=== PATIENT | male | born 1980 | race Caucasian/White ===

== ENCOUNTER 2024-11-27 21:21 | Emergency (ER) | payer OTHER, SELFPAY ==
--- NOTE | ~2024-11-27 | XR_ITS ---
Left Hand Technique: PA, oblique, and lateral views were obtained. Clinical History: Foreign body, fishhook Findings: No acute fracture or dislocation is seen. Osseous alignment is anatomic. Joint spaces are p reserved. There is a metallic fishhook in the first interspace region at the palmar aspect of the soto d.. Impression: Metallic fishhook in the first interspace region the palmar aspect of the hand. Reviewed, dictated and finalized at location M. Impression: Metallic fishhook in the first interspace region the palmar aspect of the hand.
[2024-11-27 21:37] VITALS: BP 139/82; PULSE 83; RESP 16; TEMP 36.8; O2SAT 97
--- OUTSIDE RECORDS SUMMARY | 2024-11-27 22:54 | XMS_ITS | Referral Summary ---
Author Organization [facility] at [facility] Office Center Address [address] [place] [address] Care Team Providers Care News Library Director Name Role Phone Steve Richardson MD, Mohan Daly Primary Care Provide r Allergies No known active allergies Medications cetirizine (ZyrTEC) 10 mg chewable tablet Take 1 tablet (10 mg total) by mouth daily Active fluticasone propionate (FLONASE) 50 mcg/actuation nasal spray Administer 1 spray into each nostril daily Active loratadine (CLARITIN) 10 mg tabletIndications:Seaso nal allergies Take 1 tablet (10 mg total) by mouth daily 90 tablet 3 08/28/19 24 Active atorvastatin (LIPITOR) 80 mg tabletIndications:Type 2 diabetes mellitus without complication, without long-term current use of insulin (HCC) Take 1 tablet (80 mg total) by mouth daily 90 tablet 4 12/16/19 24 2024 Active zolpidem CR (AMBIEN CR) 6.25 mg CR tabletIndications:Insom howie Take 1 tablet (6.25 mg total) by mouth nightly as needed for sleep 30 tablet 02/16/20 24 Active tirzepatide (Mounjaro) 15 mg/0.5 mL pen injectorIndications:Typ e 2 diabetes mellitus with hyperglycemia, without long-term current use of insulin (HCC) Inject 15 mg under the skin every 7 days 2 mL 11 05/13/20 24 Active omega-3 fatty acids 1,000 mg capsuleIndications:Pure hypertriglyceridemia Take 1 capsule by mouth nightly 90 capsule 3 07/11/19 25 Active olmesartan (BENICAR) 5 mg tabletIndications:Type 2 diabetes mellitus with hyperglycemia, without long-term current use of insulin (HCC) Take 1 tablet (5 mg total) by mouth daily 90 tablet 3 07/11/19 25 2025 Active Active Problems Problem Noted Date Diagnosed Date Preventative health care 06/17/2023 Assessment & Plan (07/11/2024 2:11 PM IMPORT/EXPORT SPECIALIST): Reviewed labs, screenings and vaccines Assessment & Plan (06/17/2023 10:01 AM IMPORT/EXPORT SPECIALIST): Reviewed labs, screenings and vaccines Type 2 diabetes mellitus wit h hyperglycemia, without long-term current use of insulin 12/16/2022 Overview (12/16/2022): 2019 dx, standard blood work Tried metformin Added on trulicity-has been on for about a year Last time blood work was done was about a year Assessment & Plan (07/11/2024 2:11 PM IMPORT/EXPORT SPECIALIST): Hgba1c is well controlled, in the 6's for the first time in a while Continue regime although he may be having some almost hot flashes with loose stools from it, not very frequent, will monitor and report back if it worsens Assessment & Plan (12/16/2023 9:50 AM CDT): Has been on mounjaro for about 3 weeks, so we will recheck in 6 months Continue lisinopril and statin as well Seasonal allergies 12/16/2022 Assessment & Plan (12/16/2022 10:55 AM CDT): Takes OTCs prn Psychophysiological insomnia 12/16/2022 Overview (12/16/2022): Takes occasional ambien about monthly when sleep cycle gets off, has done this since 2010 Class 1 obesity due to exces s calories with serious comorbidity and body mass index (BMI) of 30.0 to 30.9 in adult 12/16/2022 Overview (12/16/2022): With dm2 Assessment & Plan (07/11/2024 2:10 PM IMPORT/EXPORT SPECIALIST): Done 15 lb since summer, Continue current regime Assessment & Plan (12/16/2023 10:16 AM CDT): Starting Mounjaro Monitor weight Assessment & Plan (06/17/2023 10:01 AM IMPORT/EXPORT SPECIALIST): With dm2 Monitor weight Assessment & Plan (12/16/2022 10:16 AM CDT): Monitor weight On trulicity NATHALIE (obstructive sleep apnea) 12/16/2022 Smoker 12/16/2022 Assessment & Plan (12/16/2022 10:22 AM CDT): Only smokes two cigarettes a day Immunizations Immunization Administration Dates Next Due Anthrax 09/30/2010, 0,03/17/2000,02/18 H1N1 Nasal 07/03/2009 Hep A, Adult 09/07/1998,01/05/1998 Hep B Vaccine 06/03/2011,11/17/2010,09/30/2010 Influenza LAIV (Nasal) 03/16/2013,2010,03/28/2010,05/21 Influenza, Quadrivalent, Spl it, Preservative Free, Intramuscular 05/21/2021,05/24/2019,04/19/2018,04/20 Influenza, Split 07/03/2009, 7,05/29/2005,07/17,06/03/2002,04/16/2001,07/10/2000 ,04/15/1999,03/27/1998,12/29/1997 Influenza, Trivalent, Cell Culture-based MDCK, Preservative Free, Antibiotic Free, Intramuscular 04/10/2020 Influenza, Trivalent, Preser vative Free, Intramuscular 04/23/2016,04/06/2015,04/05/2014,04/08 Influenza, Unspecified 07/11/2024(Deferr ed: Patient Refused),04/22/2024(Deferred: Patient Refused),04/22/2023(Deferred: Patient Refused),04/22/2022 Influenza, Whole 06/03/2002, 1,07/10/2000,04/15,03/27/1998,12/29/1997 Green[place]ic Encephalitis IM 02/08/2021,11/26/2020 MMR 04/05/2014,01/05/1998 Meningococcal MCV4P (Menactra) 10/02/2010 Meningococcal Polysaccharide (Menomune) 12/29/1997 OPV 01/05/1998 PPD TEST 01/25/2002, 0,01/14/1999,11/29 Smallpox 11/17/2010 Td, adsorbed 04/10/2020,12/29/1997 Tdap 01/28/2010 Typhoid H-P SQ/ID 01/06/2003,11/26/2000,09/07/18 99 Typhoid Inactivated 08/11/2018, 6,02/10/2014,10/02,07/20/2007,06/02/2005 Yellow Fever 02/10/2014,09/07/1998 Social History Tobacco Use Types Packs/Day Years Used Date Smoking Tobacco: Every Day Cigarettes Smokeless Tobacco: Never Tobacco Cessation:Ready to Q uit: No; Counseling Given: Yes AUDIT-C Answer Date Recorded Q1: How often do you have a drink containing alc ohol? 2-4 times a month 12/16/2023 Q2: How many drinks containi ng alcohol do you have on a typical day when you are drinking? 1 or 2 12/16/2023 Q3: How often do you have si x or more drinks on one occasion? Never 12/16/2023 PHQ-2 Answer Date Recorded PHQ-2 Total Score (If total score is 3 or more points, staff should administer the PHQ-9) 0 07/11/2024 Sex and Gender Information Value Date Recorded Sex Assigned at Not on file Legal Sex Male 8:58 AM CDT Gender Identity Not on file Sexual Orientation Not on file Last Filed Vital Signs Vital Sign Reading Time Taken Comments Blood Pressure 112/68 07/11/2024 1:42 PM IMPORT/EXPORT SPECIALIST Pulse 71 07/11/2024 1:42 PM IMPORT/EXPORT SPECIALIST Temperature 36.4 C (97.6 F) 07/11/2024 1:42 PM IMPORT/EXPORT SPECIALIST Respiratory Rate 16 07/11/2024 1:42 PM IMPORT/EXPORT SPECIALIST Oxygen Saturation 97% 07/11/2024 1:42 PM IMPORT/EXPORT SPECIALIST Inhaled Oxygen Concentration - - Weight 106.6 kg (235 lb) 07/11/2024 1:42 PM IMPORT/EXPORT SPECIALIST Height 188 cm (6' 2) 07/11/2024 1:42 PM IMPORT/EXPORT SPECIALIST Body Mass Index 30.17 07/11/2024 1:42 PM IMPORT/EXPORT SPECIALIST Plan of Treatment Not on file Procedures Procedure Name Priority Date/Time Associated Diagnosis Comments POCT HEMOGLOBIN A1C Routine 07/11/2024 2 :01 PM IMPORT/EXPORT SPECIALIST Type 2 diabetes mellitus with hyperglycemia, without long-term current use of insulin (HCC) ALBUMIN CREATININE RATIO, URINE Routine 12/16/2023 11:40 AM CDT Type 2 diabetes mellitus without complication, without long-term current use of insulin ([facility]) EGFR Routine 12/16/2023 10:05 AM CDT Type 2 diabetes mellitus without complication, without long-term current use of insulin (HCC) LIPID PANEL Routine 12/16/2023 10:05 AM CDT Type 2 diabetes mellitus without complication, without long-term current use of insulin ([facility]) from Last 3 Months or Most Recently Relevant to Health Maintenance Results * POCT hemoglobin A1c (07/11/2024 2:01 PM IMPORT/EXPORT SPECIALIST) Pathologist [facility] Hemoglobin A1C, POC 6.4 4.0 - 5.6 % Capillary blood 07/11/2024 2 :01 PM IMPORT/EXPORT SPECIALIST Mohan Wilson Jr., MD POINT OF CARE TEST OR DERABLES Final Result * Albumin Creatinine Ratio, Urine (12/16/2023 11:40 AM CDT) Albumin Ur <12.0 mg/L Comment: Interpretive Data No reference range established. Current interpretive data was last revised 2018. Testing performed by: [facility], [address] [place] [address]., [id number] Creatinine Ur 162.6 mg/dL [facility] Comment: Interpretive Data No reference range established. Current interpretive data was last revised 2018. Testing performed by: [facility], [address] [place] [address]., [id number] Albumin Creatinine Ratio, Ur <7 1 - 29 mg/g [facility] Comment:Testing performed by : [address] [id number] Urine 12/16/2023 11:4 0 AM CDT 12/16/2023 11:40 AM CDT us Mohan Wilson Jr., MD LAB URINE ORDERABLES Final Result [facility] [address] [facility] Department [place] [address] * eGFR (12/16/2023 10:05 AM CDT) eGFR >90 >=60 mL/min/1. 73 m2 Comment: Interpretive Data Reference Interval Normal >/= 90 mL/min/1.73m2 Mildly decreased* 60 - 89 mL/min/1.73m2 Mildly to moderately decreased 45 - 59 mL/min/1.73m2 Moderately to severely decreased 30 - 44 mL/min/1.73m2 Severely decreased 15 - 29 mL/min/1.73m2 Kidney Failure < 15 mL/min/1.73m2 *Relative to young adult level Estimated glomerular filtration rate is determined by the 2020 CKD-EPI equation recommended by the National Kidney Foundation (A Unifying Approach to GFR Estimation: Recommendations of the NKF-ASK Task Force on Reassessing the Inclusion of Race in Diagnosing Kidney Disease, JASN 2020). The CKD-EPI equation should not be used for patients with unstable renal function and has not been validated in children and those over 70. Current interpretive data was last reviewed 2021. Testing performed by: [facility], [address] [place] [address]., [id number] Blood 12/16/2023 10:0 5 AM CDT 12/16/2023 11:40 AM CDT us Mohan Wilson Jr., MD LAB BLOOD ORDERABLES Final Result [facility] [address] [facility] Department [place] [address] * (ABNORMAL) Lipid panel (12/16/2023 10:05 AM CDT) Cholesterol 268(H) 30 - 199 mg/dL Comment: Interpretive Data Ages < or = 19 years Acceptable: <170 mg/dL Borderline high: 170-199 mg/dL High: >or= 200 mg/dL Ages > or = 20 years Desirable: <200 mg/dL Borderline high: 200-239 mg/dL High: >or= 240 mg/dL Literature References: 1. Expert Panel on Integrated Guidelines for Cardiovascular Health and Risk Reduction in Children and Adolescents. Pediatrics 2011;128:S213 2. NCEP Expert Panel. Circulation 2004;110:227 Current Interpretive Data was last revised on 2018. Testing performed by: [address] [address] Triglycerides 922(H) <=149 mg/dL [facility] Comment: Interpretive Data Ages < or = 9 years Acceptable: <75 mg/dL Borderline high: 75-99 mg/dL High: >or= 100 mg/dL Ages 10 to 20 years Acceptable: <90 mg/dL Borderline high: 90-129 mg/dL High: >or= 130 mg/dL Ages > or = 20 years Desirable: <150 mg/dL Borderline high: 150-199 mg/dL High: 200-499 mg/dL Very high: >or= 499 mg/dL Literature References: 1. Expert Panel on Integrated Guidelines for Cardiovascular Health and Risk Reduction in Children and Adolescents. Pediatrics 2011;128:S213 2. NCEP Expert Panel. Circulation 2004;110:227 Current Interpretive Data was last revised on 2018. Testing performed by: [address] [address] HDL 34(L) >=40 mg/dL [facility] Comment: Interpretive Data Ages < or = 19 years Acceptable: >45 mg/dL Borderline low: 40-45 mg/dL Low: <40 mg/dL Ages > or = 20 years Desirable: >or= 60 mg/dL Low: <40 mg/dL Literature References: 1. Expert Panel on Integrated Guidelines for Cardiovascular Health and Risk Reduction in Children and Adolescents. Pediatrics 2011;128:S213 2. NCEP Expert Panel. Circulation 2004;110:227 Current Interpretive Data was last revised on 2018. Testing performed by: [address] [address] LDL, calculated See Comment <=129 mg/dL [facility] Comment: C annot Calculate, Triglycerides above 400 mg/dL Interpretive Data Ages < or = 19 years Acceptable: <110 mg/dL Borderline high: 110-129 mg/dL High: >or= 130 mg/dL Ages > or = 20 years Optimal: <100 mg/dL Near optimal: 100-129 mg/dL Borderline high: 130-159 mg/dL High: >160 mg/dL Literature References: 1. Expert Panel on Integrated Guidelines for Cardiovascular Health and Risk Reduction in Children and Adolescents. Pediatrics 2011;128:S213 2. NCEP Expert Panel. Circulation 2004;110:227 Current Interpretive Data was last revised on 2018. Testing performed by: [address] [address] Non-HDL Cholesterol 234 mg/dL [facility] Comment: Interpretive Data Ages < or = 19 years Acceptable: <120 mg/dL Borderline high: 120-144 mg/dL High: >145 mg/dL Ages > or = 20 years When triglycerides are >200 mg/dL, Non-HDL cholesterol is a secondary target of therapy with treatment goals that are 30 mg/dL greater than the LDL cholesterol target. Literature References: 1. Expert Panel on Integrated Guidelines for Cardiovascular Health and Risk Reduction in Children and Adolescents. Pediatrics 2011;128:S213 2. NCEP Expert Panel. Circulation 2004;110:227 Current Interpretive Data was last revised on 2018. Testing performed by: [address] [address] Chol/HDL ratio 8 [facility] Comment:Testing performed by : [address] [address] Blood 12/16/2023 10:0 5 AM CDT 12/16/2023 11:40 AM CDT Mohan Wilson Jr., MD LAB BLOOD ORDERABLES Final Result Performing Organization Address City/State/ZIP [place] Phone Number CERNER [facility] [address] [facility] Department [place] [address] from Last 3 Months or Most Recently Relevant to Health Maintenance Insurance [employer] [facility] Care Teams News Library Director Relationship Specialty Start Date End Date Mohan Wilson Jr., MD [address] [place] [id number] PCP - General Internal Medicine 12/16/22
--- OUTSIDE RECORDS SUMMARY | 2024-11-27 22:54 | XMS_ITS | Clinical Summary ---
Author Organization [facility] at [facility] Office Center Address [address] [place] [address] Care Team Providers Care Filler Sifter Helper Name Role Phone Steve Richardson MD, Mohan [...] 06/17/2023 Assessment & Plan (07/11/2024 2:11 PM AUTO CUSTOMIZE PAINTER): Reviewed labs, screenings and vaccines Assessment & Plan (06/17/2023 10:01 AM AUTO CUSTOMIZE PAINTER): Reviewed labs, screenings and vaccines Type 2 diabetes mellitus wit h hyperglycemia, without long-term current use of insulin 12/16/2022 Overview (12/16/2022): 2019 dx, standard blood work Tried metformin Added on trulicity-has been on for about a year Last time blood work was done was about a year Assessment & Plan (07/11/2024 2:11 PM AUTO CUSTOMIZE PAINTER): Hgba1c is well controlled, in the 6's [...] dm2 Assessment & Plan (07/11/2024 2:10 PM AUTO CUSTOMIZE PAINTER): Done 15 lb since summer, Continue current regime Assessment & Plan (12/16/2023 10:16 AM CDT): Starting Mounjaro Monitor weight Assessment & Plan (06/17/2023 10:01 AM AUTO CUSTOMIZE PAINTER): With dm2 Monitor weight Assessment & Plan [...] Refused),04/22/2023(Deferred: Patient Refused),04/22/2022 Influenza, Whole 06/03/2002, 1,07/10/2000,04/15,03/27/1998,12/29/1997 Chinese Encephalitis IM 02/08/2021,11/26/2020 MMR 04/05/2014,01/05/1998 Meningococcal MCV4P (Menactra) 10/02/2010 Meningococcal Polysaccharide (Menomune) 12/29/1997 OPV 01/05/1998 PPD TEST 01/25/2002, 0,01/14/1999,11/29 Smallpox 11/17/2010 Td, adsorbed 04/10/2020,12/29/1997 Tdap 01/28/2010 Typhoid H-P SQ/ID 01/06/2003,11/26/2000,09/07/18 99 Typhoid Inactivated 08/11/2018, 6,02/10/2014,10/02,07/20/2007,06/02/2005 Yellow Fever 02/10/2014,09/07/1998 Medical History Medical History Date Comments Allergic Diabetes mellitus (HCC) Anxiety PTSD (post-traumatic stress disorder) Family History Medical History Relation Name Comments Heart disease Father Relation Name Status Comments Father Mother Alive Social History Tobacco Use Types Packs/Day Years [...] on file Sexual Orientation Not on file Obstetrics History Last Filed Vital Signs Vital Sign Reading Time Taken Comments Blood Pressure 112/68 07/11/2024 1:42 PM AUTO CUSTOMIZE PAINTER Pulse 71 07/11/2024 1:42 PM AUTO CUSTOMIZE PAINTER Temperature 36.4 C (97.6 F) 07/11/2024 1:42 PM AUTO CUSTOMIZE PAINTER Respiratory Rate 16 07/11/2024 1:42 PM AUTO CUSTOMIZE PAINTER Oxygen Saturation 97% 07/11/2024 1:42 PM AUTO CUSTOMIZE PAINTER Inhaled Oxygen Concentration - - Weight 106.6 kg (235 lb) 07/11/2024 1:42 PM AUTO CUSTOMIZE PAINTER Height 188 cm (6' 2) 07/11/2024 1:42 PM AUTO CUSTOMIZE PAINTER Body Mass Index 30.17 07/11/2024 1:42 PM AUTO CUSTOMIZE PAINTER Plan of Treatment Health Maintenance Due Date Last Done Comments Colon Cancer Screening-Colonoscopy 1979 Hepatitis C Screening 1979 Dilated Eye Exam 1979 Pneumococcal vaccine <65 (1 of 2 - PCV) 09/10/1998 Covid-19 Vaccine ( - season) 2024 07/30/2020, 07/03/2020 Foot Exam 06/17/2024 06/17/2023 Albumin Creatinine Ratio, Urine 12/15/2024 12/16/2023, 12/16/2022 Lipid Panel 12/15/2024 12/16/2023, 12/16/2022 eGFR 12/15/2024 12/16/2023, 12/16/2022 Hemoglobin A1C 01/08/2025 07/11/2024, 0611/2023, 06/17/2023, Additional history exists Influenza Vaccine (Season Ended) 2025 04/22/2022, 05/21/2021, 04/10/2020, Additional history exists Depression Screening 07/11/2025 07/11/2024, 12/16/2023, 06/17/2023, Additional history exists Regular Well Visit/Exam 18-64 07/11/2025 07/11/2024, 06/17/2023 DTaP/Tdap/Td Vaccine (3 - Td or Tdap) 04/10/2030 04/10/2020, 01/28/2010, 12/29/1997 Hepatitis B Screening Completed 06/03/2011 , 11/17/2010, 09/30/2010 HPV Vaccines Aged Out No longer eligi ble based on patient's age to complete this topic Varicella Vaccines Discontinued Procedures Procedure Name Priority Date/Time Associated Diagnosis Comments POCT HEMOGLOBIN A1C Routine 07/11/2024 2 :01 PM AUTO CUSTOMIZE PAINTER Type 2 diabetes mellitus with hyperglycemia, without long-term current use of insulin (HCC) ALBUMIN CREATININE RATIO, URINE Routine 12/16/2023 11:40 AM CDT Type 2 diabetes mellitus without complication, without long-term current use of insulin (HCC) EGFR Routine 12/16/2023 10:05 AM CDT Type 2 diabetes mellitus without complication, without long-term current use of insulin (HCC) LIPID PANEL Routine 12/16/2023 10:05 AM CDT Type 2 diabetes mellitus without complication, without long-term current use of insulin (HCC) from Last 3 Months or Most Recently Relevant to Health Maintenance Results * POCT hemoglobin A1c (07/11/2024 2:01 PM AUTO CUSTOMIZE PAINTER) Hemoglobin A1C, POC 6.4 4.0 - 5.6 % Capillary blood 07/11/2024 2 :01 PM AUTO CUSTOMIZE PAINTER Mohan Wilson Jr., MD POINT OF CARE TEST OR DERABLES Final Result * Albumin Creatinine Ratio, Urine (12/16/2023 11:40 AM CDT) Albumin Ur <12.0 mg/L Comment: Interpretive Data No reference range established. Current interpretive data was last revised 2018. Testing performed by: [address] [address] Creatinine Ur 162.6 mg/dL [facility] Comment: Interpretive Data No reference range established. Current interpretive data was last revised 2018. Testing performed by: [address] [address] Albumin Creatinine Ratio, Ur <7 1 - 29 mg/g [facility] Comment:Testing performed by : [address] [address] Urine 12/16/2023 11:4 0 AM CDT 12/16/2023 11:40 AM CDT Mohan Wilson Jr., MD LAB URINE ORDERABLES Final Result Performing Organization Address [facility] Co de Phone Number [facility] [address] [place] [address] * eGFR (12/16/2023 10:05 AM CDT) eGFR [...] was last reviewed 2021. Testing performed by: [facility], [address] [place] [address]., [id number] Blood 12/16/2023 10:0 5 AM CDT 12/16/2023 11:40 AM CDT Mohan Wilson Jr., MD LAB BLOOD ORDERABLES Final Result Performing Organization Address City/[facility]/ZIP Co de Phone Number [facility] [place] [address] * (ABNORMAL) Lipid panel (12/16/2023 10:05 AM [...] revised on 2018. Testing performed by: [address] [address] Triglycerides 922(H) <=149 mg/dL [facility] Comment: Interpretive Data Ages < [...] Pediatrics 2011;128:S213 2. NCEP Expert Panel. Circulation 2003;110:227 Current Interpretive Data was last revised on 2018. Testing performed by: [address] [address] HDL 34(L) >=40 mg/dL [facility] Comment: Interpretive Data Ages < [...] revised on 2018. Testing performed by: [address] [address] LDL, calculated See Comment <=129 mg/dL [facility] Comment: C annot Calculate, Triglycerides above 400 [...] revised on 2018. Testing performed by: [address] [address] Non-HDL Cholesterol 234 mg/dL [facility] Comment: Interpretive Data Ages [...] revised on 2018. Testing performed by: [address] [address] Chol/HDL ratio 8 [facility] Comment:Testing performed by : [address] [address] Blood 12/16/2023 10:0 5 AM CDT 12/16/2023 11:40 AM CDT us Mohan Wilson Jr., MD LAB BLOOD ORDERABLES Final Result [facility] [address] [facility] Department [place] [address] from Last 3 Months or Most Recently Relevant to Health Maintenance Insurance [facility] Care Teams Filler Sifter Helper Relationship Specialty Start Date End Date Mohan Wilson Jr., MD [address] [place] [id number] PCP - General Internal Medicine 12/16/22
--- OUTSIDE RECORDS SUMMARY | 2024-11-27 22:55 | XMS_ITS | Continuity of Care Document ---
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 It does not include entries that were removed or entered in error. Problem Status Onset Date Problem Type Date of Resolution Comments Source Disease caused by 2019 novel coronavirus1 Active 2021 Condition This problem was added by Discern Expert for positive COVID-19 lab test. Unknown Organization Type 2 diabetes mellitus without complications Active 2018 Condition DoD Counseling, unspecified Active 2018 Condition DoD Pain in right ankle and joints of right foot Active 2017 Condition DoD Patient Education Active 2006 Condition DoD Other mixed anxiety disorders Active Condition DoD Encounter for screening for other disorder Active Condition DoD Other specified counseling Active Condition DoD Paresthesia of skin Active Condition DoD Ingrowing nail Active Condition DoD joint pain in the left knee Active Condition DoD Outpatient Physician Consultation Active Condition DoD CLOSED FRACTURE LEFT THUMB MCP Inactive Condition DoD joint pain fingers Active Condition DoD CONJUNCTIVITIS Inactive Condition DoD DERMATOPHYTOSIS ONYCHOMYCOSIS TOENAILS Active Condition DoD UPPER RESPIRATORY INFECTION ACUTE Inactive Condition DoD tobacco use Active Condition DoD DERMATOPHYTOSIS ONYCHOMYCOSIS TOENAILS RIGHT 1ST Active Condition DoD visit for: services physical in-theatre Inactive Condition DoD insomnia Inactive Condition DoD ATYPICAL CHEST PAIN Inactive Condition DoD fainting (syncope) Inactive Condition DoD visit for: services physical pre-deployment Inactive Condition DoD visit for: laboratory Active Condition DoD GASTROENTERITIS Active Condition DoD visit for: services physical Inactive Condition DoD Body Mass Index Active Condition DoD OBESITY Active Condition DoD Patient Education - Dietary Active Condition DoD vomiting Inactive Condition DoD ACANTHOSIS NIGRICANS Active Condition DoD FURUNCULOSIS Active Condition DoD visit for: issue repeat prescription Active Condition DoD SKIN ABSCESS Inactive Condition DoD SUPERFICIAL INJURY - NONVENOMOUS INSECT BITE ON TRUNK Active Condition DoD Patient Education - Alcohol Active Condition [place]ka II: Eureka III: NONEAxis IV: NoneAxis V: 90 Overall GAF DoD Anticipatory Guidance: Alcohol Use Active Condition [place] II: v71.09 No dxAxis III: NONEAxis IV: Occupational ProblemsAxis V: 81-90 Overall GAFPrevention: Pt given AEM to complete in the next two weeks. Pt instructed on reasons the provider referred him as part of a preventitive measure. [facility] NO PSYCHIATRIC DIAGNOSIS OR CONDITION ON AXIS I Active Condition AXIS II - V71.0 9 NO DIAGNOSISAXIS III - NO CONTRIBUTING FACTORSAXIS IV - NONE AXIS V - GAF - 80-90 DoD visit for: occupational health / fitness exam Active Condition DoD HUMAN HERPESVIRUS Inactive Condition wi ll give standing precription for acyclovir for future outbreaks. Will re-evaluate for consideration of suppression therapy. DoD visit for: administrative purpose Inactive Condition DoD ALLERGIC RHINITIS Active Condition Al legra not helping. Will switch to Claritin and add flonase and Singulair. Pt's symptoms will likely improve if he stops smoking as well. Pt counseled onseasonal pattern allergic processes. DoD CODY SPLINT Inactive Condition pt heali ng well- bone scan negative for stress fractureencouraged pt to continue with rest for few more weeks, then start running again slowlyhandout given for stretches, etc DoD FURUNCLE Inactive Condition most of le sions healed- no need po abx currentlyrec bacitracin to lesions bid- rf given DoD UPPER RESPIRATORY INFECTION Inactive Condition Pt with sy of v iral URI.Quarters.Home care.FU on Thursday with nursing if not improving -- consider ABX at that time (likely ZPack). [facility] Medications Combined list of outpatient medications from Department of Defense and Veterans Affairs facilities.Medications provided include 1) outpatient medications from the last 15 months, and 2) patient-reported medications. Medication Details Route Status Patient Instructions Prescription Expires Prescription Number Last Dispense Date Ordering Provider Order Date Order Qty Source amoxicillin -clavulanat e 875 mg-125 mg oral tablet 0 total refill(s ) Ordered 2016 No Facilit y Access atorvastati n 40 mg tablet See Instruct ions, # 90 EA, 3 total refill(s ), Hard Stop Complet ed 12/16/2023 3 2023 90.0 Ambulat ory Pharmac y atorvastati n 80 mg tablet = 1 tab(s), Oral, Daily, # 90 EA, 3 total refill(s ), Hard Stop Oral (given by mouth) Ordered 12/15/2024 5 2024 90.0 Ambulat ory Pharmac y benzonatate 200 mg oral capsule benzonat ate 200 mg oral capsule Start Date: 03/31/17 Status: Ordered Repeat number: 1 Ordered 2016 No Facilit y Access FreeStyle Aiyana 2 Sensor See Rx Instruct mary lou, SubCutan eous, # 6 EA, 0 total refill(s ), Hard Stop SubCut aneous (under the skin) Complet ed 04/07/20232022 6.0 Ambulat ory Pharmac y glucose test strip (freestyle lite) CHECK BLOOD GLUCOSE TWICE DAILY ABOUT THREE TIMES A WEEK IN THE MORNING AND 2 HOURS AFTER LARGEST MEAL., # 100 EA, 3 total refill(s ), Acute Complet ed 12/10/2022 2 2022 100.0 Ambulat ory Pharmac y lisinopril 2.5 mg tablet See Instruct ions, # 90 EA, 3 total refill(s ), Hard Stop Complet ed 12/16/2023 3 2023 90.0 Ambulat ory Pharmac y loratadine 10 mg tablet 10 mg, Oral, Daily, # 90 EA, 3 total refill(s ), Hard Stop Oral (given by mouth) Complet ed 08/27/2024 4 2024 90.0 Ambulat ory Pharmac y Mounjaro 10 mg/0.5 mL inj-pen [4pens/2mL] See Instruct ions, # 2 mL, 0 total refill(s ), Hard Stop Complet ed 04/15/2024 4 2023 2.0 Ambulat ory Pharmac y Mounjaro 12.5 mg/0.5 mL inj-pen [4pens/2mL] See Instruct ions, # 2 mL, 0 total refill(s ), Hard Stop Ordered 04/14/2025 2023 2.0 Ambulat ory Pharmac y Mounjaro 2.5 mg/0.5 mL inj-pen [4pens/2mL] See Instruct ions, # 2 mL, 0 total refill(s ), Hard Stop Discont inued 12/18/2023 4 2023 2.0 Ambulat ory Pharmac y Mounjaro 5 mg/0.5 mL inj-pen [4pens/2mL] See Instruct ions, # 2 mL, 0 total refill(s ), Hard Stop Discont inued 02/16/2024 4 2023 2.0 Ambulat ory Pharmac y Mounjaro 7.5 mg/0.5 mL inj-pen [4pens/2mL] See Instruct ions, # 2 mL, 0 total refill(s ), Hard Stop Complet ed 01/15/2024 4 2023 2.0 Ambulat ory Pharmac y Mounjaro 7.5 mg/0.5 mL inj-pen [4pens/2mL] See Instruct ions, # 2 mL, 0 total refill(s ), Hard Stop Complet ed 02/19/2024 4 2023 2.0 Ambulat ory Pharmac y naproxen 500 mg oral tablet TAKE ONE TABLET BY MOUTH TWICE A DAY FOR PAIN OR INFLAMMA TION *MED GUIDE*, # 60 EA, 1 total refill(s ), Acute Complet ed 08/22/2022 2 2022 60.0 Ambulat ory Pharmac y tirzepatide (Mounjaro) 15 mg/0.5 mL inj-pen [4pens/2mL] See Instruct ions, # 2 mL, 11 total refill(s ), Hard Stop Ordered 05/13/2025 5 2024 2.0 Ambulat ory Pharmac y Trulicity Pen 0.75 mg/0.5 mL [4EA=2mL] See Rx Instruct ions, SubCutan eous, # 2 mL, 1 total refill(s ), Hard Stop SubCut aneous (under the skin) Discont inued 11/04/2022 3 2022 2.0 Ambulat ory Pharmac y Trulicity Pen 0.75 mg/0.5 mL [4EA=2mL] See Instruct ions, # 2 mL, 1 total refill(s ), Hard Stop Complet ed 11/26/2023 3 2023 2.0 Ambulat ory Pharmac y Trulicity Pen 1.5 mg/0.5 mL [4EA=2mL] See Instruct ions, # 6 mL, 3 total refill(s ), Hard Stop Notes: refriger ate Discont inued 02/16/2024 4 2023 6.0 Ambulat ory Pharmac y Trulicity Pen 1.5 mg/0.5 mL [4EA=2mL] See Instruct ions, # 2 mL, 3 total refill(s ), Hard Stop Complet ed 02/03/2024 3 2023 2.0 Ambulat ory Pharmac y zolpidem CR 6.25 mg tablet 6.25 mg, Oral, # 30 EA, 0 total refill(s ), Hard Stop Oral (given by mouth) Discont inued 02/16/2024 4 2023 30.0 Ambulat ory Pharmac y zolpidem CR 6.25 mg tablet See Instruct ions, # 30 EA, 0 total refill(s ), Hard Stop Complet ed 03/18/2024 4 2023 30.0 Ambulat ory Pharmac y zolpidem CR 6.25 mg tablet See Instruct ions, # 30 EA, 0 total refill(s ), Hard Stop Complet ed 06/14/2023 3 2022 30.0 Ambulat ory Pharmac y Allergies, Adverse Reactions, Alerts Combined list of allergies from Department of Defense and Veterans Affairs facilities. It does not include entries that were removed or entered in error. Substance Category Reaction Severity Reaction type Status Date Reported Comments Source No Known Allergies Drug allergy (disorder) active 05/24/2013 DoD Immunizations Combined list of available immunizations from the Department of Defense and Veterans Affairs facilities. Immunization Series Date Given Administered By Site Reaction Lot Number CVX Code Drug Woods Boss Status Comments Source Influenza, injectable, quadrivalent, preservative free 1 2020 [id number] [employer] SmithKline (SKB) complet ed Influenza , injectabl e, quadrival ent, preservat paul free DoD Bangl[place]hi Encephalitis vaccine for intramuscular administratio n 2 2020 [id number] 134 Valneva (DANN) complet ed Bangl[place] Encephali tis vaccine for intramusc ular administr ation DoD [place] Encephalitis vaccine for intramuscular administratio n 1 2020 [id number] 134 Valneva (DANN) complet ed [place] Encephali tis vaccine for intramusc ular administr ation DoD SARS-COV-2 (COVID-19) vaccine, mRNA, spike protein, LNP, preservative free, 100 mcg or 50 mcg dose 2 2020 [id number] 207 Sc[employer] Inc. (MOD) complet ed SARS-COV- 2 (COVID-19 ) vaccine, mRNA, spike protein, LNP, preservat paul free, 100 mcg or 50 mcg dose DoD SARS-COV-2 (COVID-19) vaccine, mRNA, spike protein, LNP, preservative free, 100 mcg or 50 mcg dose 1 2020 [id number] 207 [employer] (MOD) complet ed SARS-COV- 2 (COVID-19 ) vaccine, mRNA, spike protein, LNP, preservat paul free, 100 mcg or 50 mcg dose DoD tetanus and diphtheria toxoids, adsorbed, preservative free, for adult use (2 Lf of tetanus toxoid and 2 Lf of diphtheria toxoid) 3 2019 [id number] Sanofi Pasteur ([facility]) complet ed tetanus and diphtheri a toxoids, adsorbed, preservat paul free, for adult use (2 Lf of tetanus toxoid and 2 Lf of diphtheri a toxoid) DoD Influenza, injectable, Madin Herkimer Canine Kidney, preservative free, quadrivalent 1 2019 [id number] Seqirus (SEQ) comple t ed Influenza , injectabl e, Madin Herkimer Canine Kidney, preservat paul free, quadrival ent DoD Influenza, injectable, quadrivalent, preservative free 21 2018 [id number] 150 Seqirus (SEQ) complet ed Influenza , injectabl e, quadrival ent, preservat paul free DoD typhoid Vi capsular polysaccharid e vaccine 1 2018 [id number] 101 Sanofi Pasteur (PMC) complet ed typhoid Vi capsular polysacch aride vaccine DoD Influenza, injectable, quadrivalent, preservative free 0 10/29/ 2018 [id number] 150 [facility] (SKB) complet ed Influenza , injectabl e, quadrival ent, preservat paul free DoD Influenza, injectable, quadrivalent, preservative free 0 2016 [id number] 150 [facility] (SKB) complet ed Influenza , injectabl e, quadrival ent, preservat paul free DoD influenza, seasonal, injectable-pf 2015 [id number] 140 Seqirus complet ed influenza , seasonal, injectabl e-pf 04/23/16 Given Ambulat ory Pharmac y typhoid Vi capsular polysaccharid e vac 2015 [id number] 101 sanofi pasteur complet ed typhoid Vi capsular polysacch aride vac 04/23/16 Given Ambulat ory Pharmac y typhoid Vi capsular polysaccharid e vaccine 1 2015 [id number] 101 Sanofi Pasteur ([facility]) complet ed typhoid Vi capsular polysacch aride vaccine DoD Influenza, seasonal, injectable, preservative free 1 2015 [id number] 140 Seqirus (SEQ) comple t ed Influenza , seasonal, injectabl e, preservat paul free DoD influenza, seasonal, injectable-pf 2014 [id number] 140 CSL Behring complet ed influenza , seasonal, injectabl e-pf 04/06/15 Given Ambulat ory Pharmac y Influenza, seasonal, injectable, preservative free 19 2014 [id number] 140 CSL [employer]otherapies[employer] Inc. (CSL) complet ed Influenza , seasonal, injectabl e, preservat paul free DoD influenza, seasonal, injectable-pf 2013 [id number] 140 Novartis Pharmaceutica ls complet ed influenza , seasonal, injectabl e-pf 04/05/14 Given Ambulat ory Pharmac y measles/mumps /rubella virus vaccine 2013 [id number] 03 Merck & Company Inc complet ed measles/m umps/rube lla virus vaccine 04/05/14 Given Ambulat ory Pharmac y measles, mumps and rubella virus vaccine 2 2013 [id number] 03 Merck (MSD) complet ed measles, mumps and rubella virus vaccine DoD Influenza, seasonal, injectable, preservative free 18 2013 [id number] 140 Novartis Pharmaceutica l Anitha. (NOV) complet ed Influenza , seasonal, injectabl e, preservat paul free DoD typhoid Vi capsular polysaccharid e vac 2013 [id number] 101 sanofi pasteur complet ed typhoid Vi capsular polysacch aride vac 02/10/14 Given Ambulat ory Pharmac y yellow fever vaccine 2013 [id number] 37 sanofi pasteur complet ed yellow fever vaccine 02/10/14 Given Ambulat ory Pharmac y yellow fever vaccine 2 2013 [id number] 37 Sanofi Pasteur (PMC) complet ed yellow fever vaccine DoD typhoid Vi capsular polysaccharid e vaccine 7 2013 [id number] 101 Sanofi Pasteur (PMC) complet ed typhoid Vi capsular polysacch aride vaccine DoD influenza, live, intranasal,qu adrivalent 2012 [id number] 149 Med[employer] Inc comple t ed influenza , live, intranasa l,quadriv alent 03/16/13 Given Ambulat ory Pharmac y influenza, live, intranasal, quadrivalent 17 2012 [id number] 149 Bio[employer]Tree Systems, Inc. (MED) complet ed influenza , live, intranasa l, quadrival ent DoD influenza, seasonal, injectable-pf 2011 [id number] 140 sanofi pasteur complet ed influenza , seasonal, injectabl e-pf 04/08/12 Given Ambulat ory Pharmac y Influenza, seasonal, injectable, preservative free 1 2011 [id number] 140 Sanofi Pasteur (PMC) complet ed Influenza , seasonal, injectabl e, preservat paul free DoD hepatitis B adult vaccine 2010 [id number] [id number] 43 GlaxoSmithKli ne complet ed hepatitis B adult vaccine 06/03/11 Given Ambulat ory Pharmac y hepatitis B vaccine, adult dosage 3 2010 [id number] 2AC 43 [employer] (SKB) complet ed hepatitis B vaccine, adult dosage DoD influenza virus vaccine, live 2010 [id number] 111 [employer] Systems[employer] Inc comple t ed influenza virus vaccine, live 03/19/11 Given Ambulat ory Pharmac y influenza virus vaccine, live, attenuated, for intranasal use 15 2010 [id number] 111 [employer] Inc. (MED) complet ed influenza virus vaccine, live, attenuate d, for intranasa l use DoD vaccinia (smallpox) vaccine 2010 [id number] [facility] complet ed vaccinia (smallpox ) vaccine 11/17/10 Given Ambulat ory Pharmac y hepatitis B adult vaccine 2010 [id number] 5CB 43 GlaxoSmithKli ne complet ed hepatitis B adult vaccine 11/17/10 Given Ambulat ory Pharmac y hepatitis B vaccine, adult dosage 2 2010 [id number] 43 SmithKline (SKB) complet ed hepatitis B vaccine, adult dosage DoD vaccinia (smallpox) vaccine 1 2010 VV04-00 3A 75 [facility] complet ed vaccinia (smallpox ) vaccine DoD meningococcal A,C,Y,W-135 (MCV4P) 2010 [id number] 114 sanofi pasteur complet ed meningoco ccal A,C,Y,W-1 35 (MCV4P) 10/02/10 Given Ambulat ory Pharmac y typhoid Vi capsular polysaccharid e vac 2010 [id number] 101 sanofi pasteur complet ed typhoid Vi capsular polysacch aride vac 10/02/10 Given Ambulat ory Pharmac y typhoid Vi capsular polysaccharid e vaccine 1 2010 O1181-2 101 Sanofi Pasteur (PMC) complet ed typhoid Vi capsular polysacch aride vaccine DoD meningococcal polysaccharid e (groups A, C, Y and W-135) diphtheria toxoid conjugate vaccine (MCV4P) 1 2010 [id number] 114 Sanofi Pasteur (PMC) complet ed meningoco ccal polysacch aride (groups A, C, Y and W-135) diphtheri a toxoid conjugate vaccine (MCV4P) DoD hepatitis B adult vaccine 2010 [id number] [id number] 43 GlaxoSmithKli ne complet ed hepatitis B adult vaccine 09/30/10 Given Ambulat ory Pharmac y anthrax vaccine 2010 [id number] 24 [employer] complet ed anthrax vaccine 09/30/10 Given Ambulat ory Pharmac y anthrax vaccine 3 2010 [id number] 24 [employer] [place] (MIP) complet ed anthrax vaccine DoD hepatitis B vaccine, adult dosage 1 2010 [id number] [id number] 43 SmithKline (SKB) complet ed hepatitis B vaccine, adult dosage DoD influenza virus vaccine, live 2009 [id number] 111 Medimmune Inc comple t ed influenza virus vaccine, live 03/28/10 Given Ambulat ory Pharmac y influenza virus vaccine, live, attenuated, for intranasal use 1 2009 [id number] 111 MedImmune, Inc. (MED) complet ed influenza virus vaccine, live, attenuate d, for intranasa l use DoD tetanus, diphtheria, acellular pertu is 2009 [id number] 0BA 115 [facility] tetanus, diphtheri a, acellular pertussis 01/28/10 Given Ambulat ory Pharmac y tetanus toxoid, reduced diphtheria toxoid, and acellular pertu is vaccine, adsorbed 1 2009 [id number] 0BA 115 [facility] (SKB) complet ed tetanus toxoid, reduced diphtheri a toxoid, and acellular pertussis vaccine, adsorbed DoD Novel Influenza-H1N 1-09,live virus,nasal 2009 [id number] 125 Medimmune Inc comple t ed Novel Influenza -A6P3-50, live virus,polly al 07/03/09 Given Ambulat ory Pharmac y influenza virus vaccine,split 2009 15 CSL Behring complet ed influenza virus vaccine,s plit 07/03/09 Given Ambulat ory Pharmac y influenza virus vaccine, split virus (incl. purified surface antigen)-reti red CODE 1 2009 15 [employer] (CSL) complet ed influenza virus vaccine, split virus (incl. purified surface antigen)- retired CODE [facility] Novel Influenza-H1N 1-09, live virus for nasal administratio n 1 2009 [id number] 125 Med[employer]ightlog[employer] Inc. (MED) complet ed Novel Influenza -C7R1-07, live virus for nasal administr ation DoD typhoid Vi capsular polysaccharid e vac 2007 [id number] 101 sanofi pasteur complet ed typhoid Vi capsular polysacch aride vac 07/20/07 Given Ambulat ory Pharmac y typhoid Vi capsular polysaccharid e vaccine 1 2007 [id number] 101 Sanofi Pasteur (PMC) complet ed typhoid Vi capsular polysacch aride vaccine [facility] influenza virus vaccine, live 2006 [id number] 111 [employer] Inc comple t ed influenza virus vaccine, live 05/21/07 Given Ambulat ory Pharmac y influenza virus vaccine, live, attenuated, for intranasal use 1 2006 [id number] 111 Bio[employer], Inc. (MED) complet ed influenza virus vaccine, live, attenuate d, for intranasa l use DoD influenza virus vaccine,split 2006 [id number] 15 sanofi pasteur complet ed influenza virus vaccine,s plit 07/21/06 Given Ambulat ory Pharmac y influenza virus vaccine, split virus (incl. purified surface antigen)-reti red CODE 1 2006 [id number] 15 Sanofi Pasteur (PMC) complet ed influenza virus vaccine, split virus (incl. purified surface antigen)- retired CODE DoD varicella virus vaccine 0 2006 21 () Not Given varicella virus vaccine DoD typhoid Vi capsular polysaccharid e vac 2004 [id number] 101 sanofi pasteur complet ed typhoid Vi capsular polysacch aride vac 06/02/05 Given Ambulat ory Pharmac y typhoid Vi capsular polysaccharid e vaccine 1 2004 [id number] 101 Sanofi Pasteur ([facility]) complet ed typhoid Vi capsular polysacch aride vaccine DoD influenza virus vaccine,split 2004 [id number] 15 sanofi pasteur complet ed influenza virus vaccine,s plit 05/29/05 Given Ambulat ory Pharmac y influenza virus vaccine, split virus (incl. purified surface antigen)-reti red CODE 1 2004 [id number] 15 Sanofi Pasteur ([facility]) complet ed influenza virus vaccine, split virus (incl. purified surface antigen)- retired CODE DoD influenza virus vaccine,split 2004 [id number] 15 sanofi pasteur complet ed influenza virus vaccine,s plit 07/17/04 Given Ambulat ory Pharmac y influenza virus vaccine, split virus (incl. purified surface antigen)-reti red CODE 0 2004 [id number] 15 Sanofi Pasteur ([facility]) complet ed influenza virus vaccine, split virus (incl. purified surface antigen)- retired CODE [facility] typhoid vaccine, inactivated 2002 [id number] 101 sanofi pasteur complet ed typhoid vaccine, inactivat ed 01/06/03 Given Ambulat ory Pharmac y typhoid vaccine, parenteral, other than acetone-kille d, dried 0 2002 [id number] 41 Sanofi Pasteur ([facility]) complet ed typhoid vaccine, parentera l, other than acetone-k illed, dried DoD influenza virus vaccine, whole virus 2001 [id number] 16 [facility] complet ed influenza virus vaccine, whole virus 06/03/02 Given Ambulat ory Pharmac y influenza virus vaccine,split 2001 [id number] 15 [facility] complet ed influenza virus vaccine,s plit 06/03/02 Given Ambulat ory Pharmac y influenza virus vaccine, split virus (incl. purified surface antigen)-reti red CODE 1 2001 [id number] 15 [facility] complet ed influenza virus vaccine, split virus (incl. purified surface antigen)- retired CODE DoD influenza virus vaccine, whole virus 0 2001 [id number] 16 [facility] ([facility]) complet ed influenza virus vaccine, whole virus DoD tuberculin purified protein derivative 2001 [id number] 96 sanofi pasteur complet ed tuberculi n purified protein derivativ e 01/25/02 Given Ambulat ory Pharmac y tuberculin skin test; purified protein derivative solution, intradermal 1 2001 Unknown, Provider [id number] 96 Sanofi Pasteur ([facility]) complet ed tuberculi n skin test; purified protein derivativ e solution, intraderm al DoD influenza virus vaccine, whole virus 2000 [id number] 16 sanofi pasteur complet ed influenza virus vaccine, whole virus 04/16/01 Given Ambulat ory Pharmac y influenza virus vaccine,split 2000 [id number] 15 sanofi pasteur complet ed influenza virus vaccine,s plit 04/16/01 Given Ambulat ory Pharmac y influenza virus vaccine, split virus (incl. purified surface antigen)-reti red CODE 1 2000 [id number] 15 Sanofi Pasteur ([facility]) complet ed influenza virus vaccine, split virus (incl. purified surface antigen)- retired CODE DoD influenza virus vaccine, whole virus 0 2000 [id number] 16 Sanofi Pasteur ([facility]) complet ed influenza virus vaccine, whole virus DoD typhoid vaccine, inactivated 2000 [id number] [facility] complet ed typhoid vaccine, inactivat ed 11/26/00 Given Ambulat ory Pharmac y typhoid vaccine, parenteral, other than acetone-kille d, dried 0 2000 [id number] 41 [facility] (CON) complet ed typhoid vaccine, parentera l, other than acetone-k illed, dried DoD influenza virus vaccine, whole virus 2000 [id number] 16 [employer] complet ed influenza virus vaccine, whole virus 07/10/00 Given Ambulat ory Pharmac y influenza virus vaccine,split 2000 [id number] 15 [employer] complet ed influenza virus vaccine,s plit 07/10/00 Given Ambulat ory Pharmac y influenza virus vaccine, split virus (incl. purified surface antigen)-reti red CODE 1 2000 [id number] 15 [employer] (Inactive) (MT) complet ed influenza virus vaccine, split virus (incl. purified surface antigen)- retired CODE DoD influenza virus vaccine, whole virus 0 2000 [id number] 16 [employer] (Inactive) (MT) complet ed influenza virus vaccine, whole virus DoD anthrax vaccine 1999 044 24 [employer] complet ed anthrax vaccine 04/13/00 Given Ambulat ory Pharmac y anthrax vaccine 3 1999 044 24 [employer] [place] (MIP) complet ed anthrax vaccine DoD anthrax vaccine 1999 [id number] [employer] complet ed anthrax vaccine 03/17/00 Given Ambulat ory Pharmac y anthrax vaccine 2 1999 [id number] [employer] [place] (MIP) complet ed anthrax vaccine DoD anthrax vaccine 1999 047 24 [employer] complet ed anthrax vaccine 02/19/00 Given Ambulat ory Pharmac y anthrax vaccine 1 1999 047 24 [employer] [place] (MIP) complet ed anthrax vaccine DoD tuberculin purified protein derivative [id number] [place] [address] complet ed tuberculi n purified protein derivativ e 01/01/00 Given Ambulat ory Pharmac y tuberculin skin test; purified protein derivative solution, intradermal 1 1999 Unknown, Provider [id number] [facility] (CON) complet ed tuberculi n skin test; purified protein derivativ e solution, intraderm al DoD influenza virus vaccine, whole virus 1998 [id number] 16 [facility] complet ed influenza virus vaccine, whole virus 04/15/99 Given Ambulat ory Pharmac y influenza virus vaccine,split 1998 [id number] 15 [facility] complet ed influenza virus vaccine,s plit 04/15/99 Given Ambulat ory Pharmac y influenza virus vaccine, split virus (incl. purified surface antigen)-reti red CODE 0 1998 [id number] 15 [facility] (CON) complet ed influenza virus vaccine, split virus (incl. purified surface antigen)- retired CODE DoD influenza virus vaccine, whole virus 0 1998 [id number] 16 [facility] (CON) complet ed influenza virus vaccine, whole virus DoD tuberculin purified protein derivative 1998 [id number] 96 [facility] complet ed tuberculi n purified protein derivativ e 01/14/99 Given Ambulat ory Pharmac y tuberculin skin test; purified protein derivative solution, intradermal 1 1998 Unknown, Provider [id number] 96 [facility] () complet ed tuberculi n skin test; purified protein derivativ e solution, intraderm al [facility] hepatitis A adult vaccine 1998 [id number] 52 [employer] complet ed hepatitis A adult vaccine 09/07/98 Given Ambulat ory Pharmac y typhoid vaccine, inactivated 1998 [id number] 101 [facility] complet ed typhoid vaccine, inactivat ed 09/07/98 Given Ambulat ory Pharmac y yellow fever vaccine [id number] [facility] complet ed yellow fever vaccine 09/07/98 Given Ambulat ory Pharmac y yellow fever vaccine 0 [id number] 37 [facility] (CON) complet ed yellow fever vaccine DoD typhoid vaccine, parenteral, other than acetone-kille d, dried 0 1998 [id number] 41 [facility] (CON) complet ed typhoid vaccine, parentera l, other than acetone-k illed, dried DoD hepatitis A vaccine, adult dosage 2 1998 [id number] 52 [employer] (MSD) complet ed hepatitis A vaccine, adult dosage DoD influenza virus vaccine, whole virus 1997 16 complet ed influenza virus vaccine, whole virus 03/27/98 Given Ambulat ory Pharmac y influenza virus vaccine,split 1997 15 complet ed influenza virus vaccine,s plit 03/27/98 Given Ambulat ory Pharmac y influenza virus vaccine, split virus (incl. purified surface antigen)-reti red CODE 0 1997 15 () complet ed influenza virus vaccine, split virus (incl. purified surface antigen)- retired CODE DoD influenza virus vaccine, whole virus 0 1997 16 () complet ed influenza virus vaccine, whole virus DoD hepatitis A adult vaccine 1997 [id number] 52 [employer] complet ed hepatitis A adult vaccine 01/05/98 Given Ambulat ory Pharmac y measles/mumps /rubella virus vaccine 1997 [id number] 03 [employer] complet ed measles/m umps/rube lla virus vaccine 01/05/98 Given Ambulat ory Pharmac y poliovirus vaccine, live, oral 1997 [id number] 02 [facility] complet ed polioviru s vaccine, live, oral 01/05/98 Given Ambulat ory Pharmac y trivalent poliovirus vaccine, live, oral 0 1997 0785F 02 [facility] (LED) comple t ed trivalent polioviru s vaccine, live, oral DoD measles, mumps and rubella virus vaccine 0 1997 [id number] 03 [employer] (MSD) complet ed measles, mumps and rubella virus vaccine DoD hepatitis A vaccine, adult dosage 1 1997 [id number] 52 [employer] (MSD) complet ed hepatitis A vaccine, adult dosage DoD meningococcal polysaccharid e (MPSV4) [id number] 32 [facility] complet ed meningoco ccal polysacch aride (MPSV4) 12/29/97 Given Ambulat ory Pharmac y influenza virus vaccine, whole virus 1997 [id number] 16 [facility] complet ed influenza virus vaccine, whole virus 12/29/97 Given Ambulat ory Pharmac y influenza virus vaccine,split 1997 [id number] 15 [facility] complet ed influenza virus vaccine,s plit 12/29/97 Given Ambulat ory Pharmac y tetanus-dipht h toxoids (Td) adult/adol [id number] 09 [facility] complet ed tetanus-d iph toxoids (Td) adult/ado l 12/29/97 Given Ambulat ory Pharmac y tetanus and diphtheria toxoids, adsorbed, preservative free, for adult use (2 Lf of tetanus toxoid and 2 Lf of diphtheria toxoid) 0 [id number] 09 [facility] (CON) complet ed tetanus and diphtheri a toxoids, adsorbed, preservat paul free, for adult use (2 Lf of tetanus toxoid and 2 Lf of diphtheri a toxoid) [facility] influenza virus vaccine, split virus (incl. purified surface antigen)-reti red CODE 0 1997 [id number] 15 [facility] (CON) complet ed influenza virus vaccine, split virus (incl. purified surface antigen)- retired CODE DoD influenza virus vaccine, whole virus 0 1997 [id number] 16 [facility] (CON) complet ed influenza virus vaccine, whole virus [facility] meningococcal polysaccharid e vaccine (MPSV4) 0 [id number] [id number] 32 [facility] (CON) complet ed meningoco ccal polysacch aride vaccine (MPSV4) [facility] tuberculin purified protein derivative 1997 2496-11 96 [facility] complet ed tuberculi n purified protein derivativ e 11/29/97 Given Ambulat ory Pharmac y tuberculin skin test; purified protein derivative solution, intradermal 1 1997 Unknown, Provider [id number] 96 [facility] (CON) complet ed tuberculi n skin test; purified protein derivativ e solution, intraderm al DoD Results Combined list of recent chemistry, hematology and other laboratory results from Department of Defense and Veterans Affairs, ranging from 15 months to all on record, depending upon the facility. Order Name Results Value Reference Range Date Interpretation Specimen Comments Source Molecular Infectiou s Disease Reason for Test? Screening (11/29/21 8:35 AM) 11/29 N 0014A-[facility] Molecular Infectiou s Disease SARS-CoV -2 PCR Detected 1, 2 *CRIT* (11/29/21 8:35 AM) 11/29 Result Comment: Critical results read back by RODRIGO Franco 11/29/21 7094 Interpretive Data: Food and Drug Administrati on (FDA): This test has not been FDA cleared or approved; Emergency Use Authorizatio n (EUA): This test has been authorized by FDA under an EUA for use by authorized laboratories ; This test has been authorized only for the detection of nucleic acid from SARS-CoV-2, not for any other viruses or pathogens; and this test is only authorized for the duration of the declaration that circumstance s exist justifying the authorizatio n of emergency use of in vitro diagnostic tests for detection and/or diagnosis of COVID-19 under Section 564(b)(1) of the Act, 21 U.S.C. 360bbb-3(b)( 1), unless the authorizatio n is terminated or revoked sooner. A laboratory result of Detected is indicative of the presence of SARS-CoV-2 RNA and does not rule out bacterial infection or co-infection with other viruses. Clinical correlation with patient history and other diagnostic information is necessary to determine patient infection status. A laboratory result of Not Detected does not conclusively rule out disease. Clinical correlation is recommended. Test Performed at: [address] [place] [address] Aquatics Specialist: Cecelia Mcnair Dr. 0014A-Da [facility] Encounters Combined list of: 1) Encounters from Department of Veterans Affairs facilities going backup to the last 18 months, not all VA inpatient encounters are included; 2) Encounters from the Department of Defense facilities going backup to 280 months. Location Location Details Encounter Type Encounter Number Reason For Visit Attending Provider ADM Date DC Date Status Disposition Source [facility] Red) OUTPATIENT [id number] pretty bad cold JENNIFER VALENCIA 06/18 Released w/o Limitations [facility]) [address] [place] [address]([facility] Care Red) OUTPATIENT [id number] spot under arm skin PARTENZO WILEY SAILAJA 11/06 Released w/o Limitations [facility]) [address] [place] [address]([facility] Care Red) TELE CONSULT [id number] ADRIAN WILEY SAILAJA 11/13 [employer]([facility] Red) [employer]([facility] Red) OUTPATIENT [id number] f/u on bone scan results SAILAJA GREENE 11/20 Released w/o Limitations [employer]([facility] Red) [employer]([facility] Blue) TELE CONSULT [id number] triage to homecar MENDOZA Tucker 01/27 [employer]([facility] Blue) [employer]([facility] Red) OUTPATIENT [id number] cold MAUREEN Lee 05/26 Released w/o Limitations [employer]([facility]) [employer]([facility] C Substance Abuse) OUTPATIENT [id number] OANH MCNAIR 09/30 Released w/o Limitations [employer](D [facility] Substan ce Abuse) [employer]([facility] C Substance Abuse) OUTPATIENT [id number] f/u PABLO DOVE 10/28 Released w/o Limitations [employer]([facility] Substan ce Abuse) [employer]([facility]) OUTPATIENT [id number] allergi MAUREEN Cota 10/31 Released w/o Limitations [employer]([facility]) [employer](DG C Substance Abuse) OUTPATIENT [id number] f/u PABLO SILVERIO 12/09 Released w/o Limitations [employer]([facility] Substan ce Abuse) [employer]([facility]) OUTPATIENT [id number] insect bite/pt wants to be seen today TERE LONG 08/29 Released w/o Limitations [employer]([facility] Red) [employer]([facility]) OUTPATIENT [id number] wound check TERE LONG 08/30 Released w/o Limitations [employer]([facility]) [employer]([facility] Dermat[facility] gy [facility]) OUTPATIENT [id number] recurre nt abscess es DIONNA QUISPE E 10/06 Released w/o Limitations [employer](D [facility] Dermato logy Clinic) [employer]([facility] Red) OUTPATIENT [id number] NESHA Mata 08/23 Released w/o Limitations [employer](D avid [facility] Primary Care Red) [employer]([facility] Nutrition ) OUTPATIENT [id number] HLP VICENTE RUBALCAVA 11/26 Released w/o Limitations [employer](D [facility] Nutriti on) [employer] Anil [facility]Sco tt [facility] Fam Res Tm Red) OUTPATIENT [id number] Attende jennifer haines'juan December 29 SHARIF TOM 01/15 Released w/o Limitations [employer] [facility] ([facility]S cott [facility] Fam Res Tm Red) [employer] Anil MORELOS ([facility]Sco tt Flight Medicine Tm) OUTPATIENT [id number] [facility]/JULIO GRANDA 01/30 Released w/o Limitations [employer] Anil MORELOS ([facility]S cott Flight Medicin e Tm) Medical Group Anil M[facility]EL[facility] ([facility]Sco tt [facility] FAMRES Tm Blue) TELE CONSULT [id number] Acute appt for AD needed BRI LYONS 02/12 [employer] Anil [facility]ELOS ([facility]S cott [facility] Tm Blue) [employer] Anil [facility]ELOS ([facility]Sco tt [facility] Fam Res Tm Green) TELE CONSULT [id number] Flu symtoms ANDRZEJ MALDONADO 02/27 Referred for Appointment [employer] Anil MORELOS ([facility]S cott [facility] Fam Res Tm Green) [employer] Anil M[facility]ELOS ([facility]Sco tt [facility] Fam Res Tm Green) OUTPATIENT [id number] jean claude gonzalezine JOAN TATE 02/28 Released w/o Limitations [employer] Anil MORELOS ([facility]S cott [facility] Fam Res Tm Green) [employer] Anil MORELOS ([facility])(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) TELE CONSULT [id number] results JAYY BYRD 04/15 [employer] Anil MORELOS ([facility]G ynecolo gy) [employer] Anil MORELOS [facility]Dep emory [facility] Health Assessmen ts) OUTPATIENT [id number] PRE ABIODUN JON 09/30 Released w/o Limitations [employer] Anil MORELOS [facility])(D eployme nt Health Assessm ents) [employer] Anil MORELOS [facility])([facility]) OUTPATIENT [id number] YOLETTE TITUS 10/01 Released w/o Limitations [employer] Anil MORELOS ([facility]) [employer] Anil MORELOS [facility])([facility] Fam Res Tm Green) OUTPATIENT [id number] [facility]/KARLY PERDOMO 10/15 Released w/o Limitations [employer] Anil MORELOS ([facility]S [facility] Fam Res Tm Green) Theater Facility OUTPATIENT [id number] 11/23 Released with Work/Duty Limitations [facility] OUTPATIENT [id number] 02/10 Released w/o Limitations [employer] [facility] OUTPATIENT [id number] 02/18 Released w/o Limitations [employer] [facility] Anil MORELOS [facility])([facility] Flight Medicine ) OUTPATIENT [id number] [employer] CLARA AHUMADA 03/20 Released w/o Limitations [employer] Anil MORELOS [facility])(S [facility] Flight Medicin e Tm) [employer] Anil MORELOS [facility])([facility] Health Assessmen ts) OUTPATIENT [id number] Post DOMINIQUE BHAKTA 06/26 Released w/o Limitations [employer] Anil MORELOS ([facility]D eployme nt Health Assessm ents) [facility] Anil MORELOS [facility])([facility] Health Assessmen ts) OUTPATIENT [id number] post ABIODUN Guerrero 10/26 Released w/o Limitations [employer] Anil MORELOS ([facility]D eployme nt Health Assessm ents) [address] [place] [address] Anil MORELOS ([facility]Sco tt [facility] Fam Res Tm Green) OUTPATIENT [id number] Notes Entered by: ALAYNA AUSTIN 31 Oct 2011 0843 ------- ------- ------- ------- -- DHC/NAYELY RICK 10/30 Released w/o Limitations [address] [place] [address] [facility] [employer] ([facility]S cott [facility] Fam Res Tm Green) [address] [place] [address] An[facility] ([facility]Sco tt [facility] Fam Res Tm Green) OUTPATIENT [id number] fungus under right toe nail [id number] NAYELY URIARTE 01/14 Released w/o Limitations [address] [place] [address] Anil SHUK[facility])(S cott [facility] Fam Res Tm Green) [address] [place] [address] Anil SHUK[facility])(Sco tt [facility] Fam Res Tm Green) OUTPATIENT [id number] Cough, Congest ion x2 days H# ROSCOE SANCHEZ 09/16 Released w/o Limitations [address] [place] [address] Anil SHUK[facility])(S cott [facility] Fam Res Tm Green) [address] [place] [address] Anil SHUK[facility])(Sco tt [facility] Fam Res Tm Green) OUTPATIENT [id number] Possibl e pink eye [phone] TONY DUGGAN 09/20 Released w/o Limitations [address] [place] [address] Anil [facility])(S cott [facility] Fam Res Tm Green) [address] [place] [address] Anil [facility])(Dep emory [facility] Health Assessmen ts) OUTPATIENT [id number] post ENZO Nichols 11/01 Released w/o Limitations [address] [place] [address] An[facility] [employer] ([facility]D eployme nt Health Assessm ents) [address] [place] [address] Anil [facility])(Sco tt [facility] Fam Res Tm Green) TELE CONSULT [id number] Notes Entered by: ALAYNA AUSTIN 03 Nov 2012 1209 ------- ------- ------- ------- -- DHC/NAYELY RICK 11/[address] [place] [address] Anil MORELOS [facility])(S cott [facility] Fam Res Tm Green) [address] [place] [address] Anil JACK [facility])(Sco tt [facility] Fam Res Tm Green) TELE CONSULT [id number] Notes Entered by: EMELYN POTTER 03 Jan 2013 0848 ------- ------- ------- ------- -- Nurse advice/ Dr. Uriarte/7 [phone] PAIGE NIETO 01/[address] [place] [address] Anil JACK [facility])(S cott [facility] Fam Res Tm Green) [address] [place] [address] Anil MORELOS [facility])(Sco tt [facility] Fam Res Tm Green) OUTPATIENT [id number] LEFT THUMB PAIN x1 WEEK AFTER JAMMING IT PLAYING [employer] ROBBY NGUYEN 01/04 Released w/o Limitations [address] [place] [address] Anil MORELOS [facility])(S cott [facility] Fam Res Tm Green) [address] [place] [address] Anil MORELOS [facility])(Sco tt [facility] Fam Res Tm Green) TELE CONSULT [id number] Notes Entered by: LILIA NGUYEN 06 Jan 2013 1425 ------- ------- ------- ------- -- ROBBY Esparza 01/[address] [place] [address] Anil JACK [facility])(S cott [facility] Fam Res Tm Green) [address] [place] [address] Anil MORELOS [facility])(Sco tt [facility] Fam Res Tm Green) TELE CONSULT [id number] Notes Entered by: ALLISON DOMINIQUE 19 Jan 2013 1216 ------- ------- ------- ------- -- Network Results - Orthope dics 01/11/13 NAYELY URIARTE 01/[address] [place] [address] Anil JACK [facility])(S cott [facility] Fam Res Tm Green) [address] [place] [address] Anil MORELOS [facility]Sco tt [facility] Medicine ) TELE CONSULT [id number] Notes Entered by: KHALIF RILEY 29 Mar 2013 0908 ------- ------- ------- ------- -- Hearing test YOSELYN SABILLON 03/[address] [place] [address] Anil Mikki [facility])(S cott [employer] Tm) [address] [place] [address] Anil MORELOS [facility])(Sco tt [facility] Fam Res Tm Green) OUTPATIENT [id number] continu e cough - x2 wks - [id number] NAYELY URIARTE 05/24 Released w/o Limitations [address] [place] [address] Anil MORELOS [facility])(S [facility] Fam Res Tm Green) [address] [place] [address] Anil MORELOS [facility])(Sco tt [facility] Res Tm Green) OUTPATIENT [id number] left knee pain - x1 mo. - [phone] PAIGE NIETO 08/19 Released with Work/Duty Limitations [address] [place] [address] Anil MORELOS [facility])(S [facility] Fam Res Tm Green) [address] [place] [address] Anil MORELOS [facility])(Sco tt [facility] Res Tm Green) TELE CONSULT [id number] Notes Entered by: Mikki HE 02 Dec 2013 0952 ------- ------- ------- ------- -- [facility]/PHA NAYELY URIARTE 12/[address] [place] [address] Anil GAYLAMikki [facility]S [facility] Fam Res Tm Green) [address] [place] [address] Anil MORELOS [facility])(Sco tt [facility] Fam Res Tm Green) OUTPATIENT [id number] pulled muscle by thigh playing softChronogolf l [id number] FARZANEH OH 01/23 Released w/o Limitations [address] [place] [address] Anil GAYLAMikki [facility])(S [facility] Fam Res Tm Green) [address] [place] [address] Anil [employer] [facility])(Sco tt [employer] Tm) TELE CONSULT [id number] Notes Entered by: PARISA PEÑA 17 Apr 2014 1452 ------- ------- ------- ------- -- WILLY Chakraborty am 04/[address] [place] [address] Anil GAYLAMikki [facility])(S cott [employer] Tm) [address] [place] [address] Anil GAYLAMikki [facility])(Sco tt [facility] Fam Res Tm Green) OUTPATIENT [id number] knee pain from running x2 months [phone] HECTOR MARQUES 08/21 Released w/o Limitations [address] [place] [address] Anil MORELOS [facility])(S cott [facility] Fam Res Tm Green) [address] [place] [address] Anil SHUKLAB [facility])(Sco tt [facility] Tm Blue) OUTPATIENT [id number] knee pain [id number] NAYELY THOMPSON 08/31 Released with Work/Duty Limitations [address] [place] [address] Anil MORELOS [facility])(S cott [facility] Tm Blue) [address] [place] [address] Anil [facility]AYLAB [facility])(Sco tt [facility] Res Tm Green) TELE CONSULT [id number] Notes Entered by: CHRISTOPHER WISDOM 04 Sep 2014 1355 ------- ------- ------- ------- -- [facility]/HECTOR MCKEON 09/[address] [place] [address] Anil GAYLAMikki [facility]S cott [facility] Res Tm Green) [address] [place] [address] Anil TAMY [facility])(Sco tt [facility] Res Tm Green) TELE CONSULT [id number] Notes Entered by: KD MARQUEZ ELS 19 Sep 2014 0700 ------- ------- ------- ------- -- Sx: Wilma tanner and Nelly a//Alisha ras//[phone] HECTOR MARQUES 09/[address] [place] [address] Anil SHUKLAMikki [facility]S cott [facility] Res Tm Green) [address] [place] [address] Anil [facility])(Phy sical Therapy) OUTPATIENT [id number] Joint pain in the left knee ORACIO DAVENPORT 10/03 Released with Work/Duty Limitations [address] [place] [address] Anil GAYLAMikki [facility])(P hysical Therapy ) [address] [place] [address] Anil GAYLAB [facility])(Sco tt [facility] Fam Res Tm Green) OUTPATIENT [id number] sores on ribcage under both arms GOPAL ALVAREZ 11/07 Released w/o Limitations [facility]S cott [facility] Fam Res Tm Green) [address] [place] [address])([facility]) TELE CONSULT [id number] Notes Entered by: DIANELYS ALVAREZ 18 Nov 2014 1322 ------- ------- ------- ------- -- Lipid results GOPAL ALVAREZ 11/[address] [place] [address])(S cott [facility] Tm Blue) [address] [place] [address])(Sco tt [facility] Fam Res Tm Green) TELE CONSULT [id number] Notes Entered by: LISA STERLING 29 Nov 2014 09 ------- ------- ------- ------- -- Sx: Head/ch est congest ion, [facility] SIDRA [facility]ST[facility] 11/[address] [place] [address])(S [facility] [facility] F[facility] [place]) [address] [place] [address])([employer]ology) OUTPATIENT [id number] WILL MORSE 12/08 Released w/o Limitations [address] [place] [address])(Jennifer ermatovanessa redd) [address] [place] [address])(Sco tt [facility] [place]) TELE CONSULT [id number] Notes Entered by: STEPH WILCOX 22 Feb 2015 0815 ------- ------- ------- ------- -- Sx - Multipl e sx/Alisha mcginnis/[phone] .[phone] 05 SIDRA HOUSTON 02/[address] [place] [address])(S cott [facility] [place] [place]) [address] [place] [address])(Sco tt [facility] [place]) OUTPATIENT [id number] Ankle pain LIBORIO FUNEZ 03/12 Released w/o Limitations [address] [place] [address])(S [facility] [place] [place]) [facility] Anil MORELOS [facility])([employer]) OUTPATIENT [id number] Notes Entered by: NORENE MORAN 19 Mar 2015 1001 ------- ------- ------- ------- -- Alice ESTRADAWILL Mikki 03/19 Released w/o Limitations [address] [place] [address] Group Anil MORELOS [facility])(Jennifer redd) [address] [place] [address] [facility] tt Flight Medicine Tm) TELE CONSULT [id number] Notes Entered by: LILIA PASTRANA 05 Jul 2015 1150 ------- ------- ------- ------- -- JANEEN Jensen 07/05 Other Not Elsewhere Classified [address] [place] [address] Group Anil MORELOS [facility])([facility] Flight Medicin e Tm) [address] [place] [address] [facility] Fam Res [place] [place]) TELE CONSULT [id number] Notes Entered by: KRISS POST 29 Aug 2015 0827 ------- ------- ------- ------- -- Pt want FTR but refused to give CAD info - Angel - [phone] ROCKY MESA 08/28 Referred for Appointment [address] [place] [address] Anil MORELOS [facility])([facility] Fam Res [place] [place]) [address] [place] [address] Anil MORELOS [facility])([facility] Fam Res [place]) OUTPATIENT [id number] memory and attenti on issues/ [id number] HECTOR MARQUES 08/29 Released w/o Limitations [address] [place] [address] Anil SHUKLAB [facility])(S [facility] Fam [facility] [place] [place]) [address] [place] [address] Anil B [facility])([facility]) OUTPATIENT [id number] per provide r memory and attenti on issues [id number] LISY CONTRERAS 09/03 Released w/o Limitations [address] [place] [address] Group Anil SHUKLAB [facility])(O [facility]) [address] [place] [address] Anil SHUKLAB [facility])(Sco tt [facility] Res Tm Green) TELE CONSULT [id number] Notes Entered by: Wyatt ACOSTA 18 Oct 2015 1424 ------- ------- ------- ------- -- Colette/HECTOR MCKEON 10/[address] [place] [address] Anil JACK [facility])(S cott [facility] Res Tm Green) [address] [place] [address] Anil [facility])(Sco tt [facility] Green) TELE CONSULT [id number] Notes Entered by: KD MARQUEZ ELS 12 Nov 2015 1007 ------- ------- ------- ------- -- Sx: Right Ankle Pain//Tamiko Forrester/ /[phone] ROCKY MESA 11/11 Referred for Appointment [address] [place] [address] Anil Mikki [facility])(S [facility] Res Tm Green) [address] [place] [address] Anil [facility])(Sco tt [facility] Res Tm [place]) OUTPATIENT [id number] persist ant r ankle pain (upcomi ng pt test) ISABEL PATTERSON 11/14 Released w/o Limitations [address] [place] [address] Anil GAYLAMikki [facility])(S cott [facility] Res Tm [place]) [address] [place] [address] Anil GAYLAB [facility])(Sco tt [facility] Res Green) OUTPATIENT [id number] ankle pain NAYELY RIVERA 06/11 Released w/o Limitations [address] [place] [address] [facility]S [facility] Res Tm Green) [address] [place] [address] Anil B [facility])(Sco tt [facility] Res Green) OUTPATIENT [id number] Toe nail Fungus SHAGGY LEO 10/14 Released w/o Limitations [address] [place] [address] Anil GAYLAMikki [facility])(S cott [facility] Res [facility]m [place]) [address] [place] [address] Anil [facility])(Shaheen riofabi Op Med Cln Tm A Ad) OUTPATIENT [id number] toe nail BLEMAGGIE SAAVEDRA 11/06 Released w/o Limitations [facility])(W arrior Op Med Cln Tm A Ad) [address] [place] [address])(Bas e Operation al Medicine Clin) TELE CONSULT [id number] Notes Entered by: WINNIE TAVARES 07 Nov 2016 1058 ------- ------- ------- ------- -- PRIORIT Y TRI-SER VICE NON FLY NEIL GONZALEZ 11/[address] [place] [address])(B ase Operati onal Medicin e Clin) [address] [place] [address])(Bas e Operation al Medicine Clin) OUTPATIENT [id number] Notes Entered by: WINNIE TAVARES 07 Nov 2016 1059 ------- ------- ------- ------- -- PRIORIT Y TRI-SER VICE NON FLY PHA MAGGIE RIZO 11/07 Released w/o Limitations [address] [place] [address])(B ase Operati onal Medicin e Clin) [address] [place] [address])(Min or Procedure Clinic) OUTPATIENT [id number] tinea ungium evaluat ion NAYELY RIVERA 11/10 Released w/o Limitations [address] [place] [address])(M inor Procedu re Clinic) [address] [place] [address])(Sco tt [facility] Fam Res [facility]m [place]) TELE CONSULT [id number] Notes Entered by: KIRTI CASTORENA 24 Nov 2016 1447 ------- ------- ------- ------- -- Profile NAYELY RIVERA 11/[address] [place] [address])(S cott [facility] Fam Res [facility]m [place]) [address] [place] [address])(Sco tt [facility] Fam Res [facility] [place]) TELE CONSULT [id number] Notes Entered by: MONTSE JACINTO 04 Dec 2016 1707 ------- ------- ------- ------- -- Lab results SHAGGY LEO 12/[address] [place] [address])(S gladys [facility] Res Tm Green) [address] [place] [address])(War rior Op Med Cln Tm A Ad) TELE CONSULT [id number] Notes Entered by: KRISS POST 05 Jan 2017 0725 ------- ------- ------- ------- -- Sx - head/ch est congest ion - Blessin g-Calca lori- [phone] ANGELA VILLASENOR 01/05 Referred for Appointment [address] [place] [address])(W arrior Op Med Cln Tm A Ad) [address] [place] [address])(War rior Op Med Cln Tm A Ad) TELE CONSULT [id number] Notes Entered by: TEMITOPE PATEL 19 Jan 2017 1055 ------- ------- ------- ------- -- Network Results - Otorhin olaryng ology (ENT) 7 MAGGIE ESTRADA 01/[address] [place] [address])(W arrior Op Med Cln Tm A Ad) [address] [place] [address])(Bas e Operation al Medicine Clin) TELE CONSULT [id number] Notes Entered by: LILIA PASTRANA 20 Jan 2017 1156 ------- ------- ------- ------- -- JANEEN Jensen 01/20 Other Not Elsewhere Classified [address] [place] [address])(B ase Operati onal Medicin e Clin) [address] [place] [address])(War rior Op Med Cln Tm A Ad) TELE CONSULT [id number] Notes Entered by: CARMEN HERNANDEZ 06 Mar 2017 1208 ------- ------- ------- ------- -- Network Results -URGENT CARE 01/05/17 [facility] JACQUES KEYES Juan 03/06 [employer] [facility]W arrior Op Med Cln Tm A Ad) [employer] ([facility]War rior Op Med Cln Tm A Ad) OUTPATIENT [id number] right ankle pain ROSALES PERRIN 06/01 Released w/o Limitations [facility] Group Anil SHUKLAB ([facility])(W arrior Op Med Cln Tm A Ad) [facility] [employer] ([facility])(Phy sical Therapy) OUTPATIENT [id number] Pain in right ankle and joints of right foot CEDRIC MUÑOZ 07/27 Released w/o Limitations [address] [place] [address] Group [employer] ([facility])(P hysical Therapy ) [address] [place] [address] [employer] ([facility])(Phy sical Therapy) OUTPATIENT [id number] R) ankle proc CEDRIC MUÑOZ M 08/06 Released w/o Limitations [address] [place] [address] Group Anil GAYLAB ([facility])(P hysical Therapy ) [facility] Anil GAY[employer] ([facility])(War rior Op Med Cln Tm A Ad) OUTPATIENT [id number] body aches, sore throat headach e ROSALES PERRIN 08/13 Released w/o Limitations [address] [place] [address] Group Anil SHUKLAB ([facility])(W arrior Op Med Cln Tm A Ad) [facility] Anil [employer]AY[employer] ([facility])(Phy sical Therapy) OUTPATIENT [id number] R) ankle CEDRIC MUÑOZ M 08/19 Released w/o Limitations [address] [place] [address] Group [employer] ([facility])(P hysical Therapy ) [facility] [employer] ([facility])(Phy sical Therapy) OUTPATIENT [id number] f/u R) ankle CEDRIC MUÑOZ M 09/08 Released w/o Limitations [address] [place] [address] Group [employer] ([facility])(P hysical Therapy ) [facility] [employer] ([facility])(War rior Op Med Cln Tm A Ad) OUTPATIENT [id number] left foot pain CLARK EASON 11/04 Released w/o Limitations [facility] Anil MORELOS [facility])(W arrior Op Med Cln Tm A Ad) [facility] Anil [facility])(Bas e Operation al Medicine Clin) TELE CONSULT [id number] TAMY KANDEV Barker 12/[address] [place] [address] Group [facility])(B ase Operati onal Medicin e Clin) [address] [place] [address] Group [facility])(Bas e Operation al Medicine Clin) OUTPATIENT [id number] TRI-SER [facility] NON FLY PHA RUBY SANTAMARIA 12/07 Released w/o Limitations [facility]B ase Operati onal Medicin e Clin) [address] [place] [address] Group Anil [facility])(War rior Op Med Cln Tm A Ad) TELE CONSULT [id number] Notes Entered by: KRISS POST 08 Dec 2017 1415 ------- ------- ------- ------- -- FTR - foot pain - Katherine - [phone] HERB WEN 12/08 Referred for Appointment [address] [place] [address] Group Anil [facility])(W arrior Op Med Cln Tm A Ad) [facility] Anil [facility])(War rior Op Med Cln Tm A Ad) OUTPATIENT [id number] Notes Entered by: CLARK EASON 09 Dec 2017 1308 ------- ------- ------- ------- -- ongoing left foot pain CLARK EASON 12/09 Released w/o Limitations [facility]W arrior Op Med Cln Tm A Ad) [address] [place] [address] Group Anil [facility])(Fam marleny Med Tm B Non-AD BCC) TELE CONSULT [id number] Notes Entered by: JACQUES SANTAMARIA 22 Dec 2017 1745 ------- ------- ------- ------- -- PHA follow up HERB WEN 12/22 Referred for Appointment [address] [place] [address])(F amily Med Tm B Non-AD BCC) [address] [place] [address])(War rior Op Med Cln Tm A Ad) OUTPATIENT [id number] Discuss fatigue issue per PHA OUMOU DILLON 01/07 Released w/o Limitations [address] [place] [address])(W arrior Op Med Cln Tm A Ad) [address] [place] [address])(War rior Op Med Cln Tm A Ad) TELE CONSULT [id number] Notes Entered by: GEN DILLON 08 Jan 2018 1154 ------- ------- ------- ------- -- Profile OUMOU DILLON 01/[address] [place] [address])(W arrior Op Med Cln Tm A Ad) [address] [place] [address])(War rior Op Med Cln Tm A Ad) OUTPATIENT [id number] fatigue OUMOU DILLON 06/02 Released w/o Limitations [address] [place] [address])(W arrior Op Med Cln Tm A Ad) [address] [place] [address])(War rior Op Med Cln Tm A Ad) TELE CONSULT [id number] Notes Entered by: GEN DILLON 08 Jun 2018 0744 ------- ------- ------- ------- -- Lab result HERB WEN 06/08 Referred for Appointment [address] [place] [address])(W arrior Op Med Cln Tm A Ad) [address] [place] [address])(War rior Op Med Cln Tm A Ad) OUTPATIENT [id number] Left Heel Pain OUMOU DILLON 06/10 Released w/o Limitations [address] [place] [address])(W arrior Op Med Cln Tm A Ad) [address] [place] [address])(Bas e Operation al Medicine Clin) TELE CONSULT [id number] Notes Entered by: LILIA PASTRANA 28 Jun 2018 0706 ------- ------- ------- ------- -- JANEEN Cash 06/28 Other Not Elsewhere Classified [address] [place] [address])(B ase Operati onal Medicin e Clin) [address] [place] [address])([facility]) OUTPATIENT [id number] Sleep issues JOSSIE BERMEO 06/28 Released w/o Limitations [address] [place] [address])([facility]) [address] [place] [address])(War rior Op Med Cln Tm A Ad) TELE CONSULT [id number] Notes Entered by: LISA STERLING 01 Jul 2018 0813 ------- ------- ------- ------- -- Sx: Left heel pain - Yoly - - tsg* GREYSON DAVID 07/01 Referred for Appointment [address] [place] [address])(W arrior Op Med Cln Tm A Ad) [address] [place] [address])(War rior Op Med Cln Tm A Ad) OUTPATIENT [id number] *profil e/229.2 243 OUMOU DILLON 07/05 Released w/o Limitations [address] [place] [address])(W arrior Op Med Cln Tm A Ad) [address] [place] [address])([facility]) OUTPATIENT [id number] 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 / JOSSIE BERMEO 08/17 Released w/o Limitations [address] [place] [address])([facility]) [place] [address](PRP Admin Qual Cell, [employer]) OUTPATIENT [id number] Notes Entered by: CHADD PADILLA 17 Aug 2018 1403 ------- ------- ------- ------- -- PRP Admin Qual CHADD PADILLA 08/17 Released w/o Limitations ANDRÉS Edmond [place] [address](P RP Admin Qual Cell, RAFB) [address] [place] [address] Group [facility])(Bas e Operation al Medicine Clin) TELE CONSULT [id number] Notes Entered by: LILIA PASTRANA 24 Aug 2018 0854 ------- ------- ------- ------- -- JANEEN Jensen 08/24 Other Not Elsewhere Classified [facility])(B ase Operati onal Medicin e Clin) [address] [place] [address] Group [facility])(War rior Op Med Cln Tm A Ad) TELE CONSULT [id number] Notes Entered by: GEN DILLON 25 Aug 2018 1137 ------- ------- ------- ------- -- FARZANEH Solomon 08/25 Other Not Elsewhere Classified [facility])(W arrior Op Med Cln Tm A Ad) [address] [place] [address] Group [facility])(War rior Op Med Cln Tm A Ad) TELE CONSULT [id number] Notes Entered by: GEN DILLON 30 Aug 2018 1136 ------- ------- ------- ------- -- FARZANEH Solomon 08/30 Other Not Elsewhere Classified [facility])(W arrior Op Med Cln Tm A Ad) [address] [place] [address] Group [facility])(War rior Op Med Cln Tm A Ad) TELE CONSULT [id number] Notes Entered by: GEN DILLON 02 Sep 2018 1311 ------- ------- ------- ------- -- FARZANEH Conner 09/02 Other Not Elsewhere Classified [facility])(W arrior Op Med Cln Tm A Ad) [address] [place] [address] Group [facility])(War rior Op Med Cln Tm A Ad) OUTPATIENT [id number] follow up OCTOBER, OLI Haines 09/06 Released w/o Limitations [employer] Anil GAYLAMikki ([facility]W arrior Op Med Cln Tm A Ad) [place] [address](PRP Admin Qual Cell, RAFB) TELE CONSULT [id number] Notes Entered by: GORDON MORA 06 Sep 2018 1441 ------- ------- ------- ------- -- AQ Complet e Sep 07 GORDON MORA 09/06 Released to Self Care [facility] [place] [address](P RP Admin Qual Cell, RAFB) [employer] Anil MORELOS [facility])(Opt ometry) OUTPATIENT [id number] Type 2 diabete s mellitu s without complic ations CARLOS BEGUM 09/08 Released w/o Limitations [employer] Anil GAYLAMikki ([facility])(O ptometr y) [employer](BOM C 1 Phys Exams) OUTPATIENT [id number] [facility]# [phone] AUGUSTINA PETE 01/07 Released w/o Limitations [employer](B OMC 1 Phys Exams) [facility](Tro op_AD Only) OUTPATIENT [id number] Z-RAHUL HUERTAHECTOR 01/14 Released w/o Limitations [employer](T roop_AD Only) [facility](Phy sical Therapy Clinic) OUTPATIENT [id number] Right ankle and hip pain JESSICA ROE 05/13 Released w/o Limitations [employer](P hysical Therapy Clinic) [facility](Phy sical Therapy Clinic) OUTPATIENT [id number] JESSICA ROE 05/24 Released w/o Limitations [employer](P hysical Therapy Clinic) [facility](Phy sical Therapy Clinic) OUTPATIENT [id number] JESSICA ROE 05/31 Released w/o Limitations [employer](P hysical Therapy Clinic) [facility](Tro op_AD Only) OUTPATIENT [id number] BODY ACHES.F EVER.SO RE THROAT. CHILLS PEYTON DAVIS 06/20 Sick at Home/Quarter s [facility](T roop_AD Only) [facility](Tro op_AD Only) TELE CONSULT [id number] Notes Entered by: Nayla SETH 18 Nov 2019 1243 ------- ------- ------- ------- -- PADMA CORLEY 11/17 Referred for Appointment [facility](T roop_AD Only) [facility](Tro op_AD Only) TELE CONSULT [id number] Notes Entered by: PEYTON DAVIS 21 Nov 2019 1523 ------- ------- ------- ------- -- Lab results PEYTON DAVIS 11/20 [facility](T roop_AD Only) [facility](Tro op_AD Only) OUTPATIENT [id number] F2FAR ILO DIABETE S PEYTON DAVIS 11/22 Released w/o Limitations [facility](T roop_AD Only) [facility](Tro op_AD Only) TELE CONSULT [id number] Notes Entered by: PEYTON DAVIS 24 Nov 2019 1629 ------- ------- ------- ------- -- Wyatt-PADMA Bui 11/23 Other Not Elsewhere Classified [facility](T roop_AD Only) [facility](Opt ometry Clinic) OUTPATIENT [id number] Diabeti c Eye Exam ANNIE MONTGOMERY 11/23 Released w/o Limitations [facility](O ptometr y Clinic) [facility](Tro op_AD Only) TELE CONSULT [id number] Notes Entered by: PEYTON DAVIS 08 Dec 2019 1144 ------- ------- ------- ------- -- labs PEYTON DAVIS 12/07 [facility](T roop_AD Only) [facility](Tro op_AD Only) TELE CONSULT [id number] Notes Entered by: PEYTON DAVIS 09 Dec 2019 1157 ------- ------- ------- ------- -- Lab results PEYTON DAVIS 12/08 [facility](T roop_AD Only) [facility](BOM C 1 Phys Exams) OUTPATIENT [id number] [facility] #[id number] [phone] AUGUSTINA PETE 12/11 Released w/o Limitations [facility](B OMC 1 Phys Exams) [facility](Tro op_AD Only) TELE CONSULT [id number] Notes Entered by: PEYTON DAVIS 20 Dec 2019 1518 ------- ------- ------- ------- -- BRANDEN Montero 12/19 Advice Assessment [facility](T roop_AD Only) [facility](Tro op_AD Only) OUTPATIENT [id number] F2F F/U DM/Depl PEYTON Pierre 12/26 Released w/o Limitations [facility](T roop_AD Only) [facility](BOM C 1 Phys Exams) OUTPATIENT [id number] [phone] AUGUSTINA PETE 02/21 Released w/o Limitations [facility](B OMC 1 Phys Exams) [facility](Tro op_AD Only) OUTPATIENT [id number] Z-PHAQ PEYTON DAVIS 03/15 Released w/o Limitations [facility](T roop_AD Only) [facility](Tro op_AD Only) OUTPATIENT [id number] ingrown /infect ed toe nail REJI PLATT 04/19 Released w/o Limitations [facility](T roop_AD Only) [facility](Tro op_AD Only) OUTPATIENT [id number] F2F ARILO PEYTON LAWTON 05/31 Released w/o Limitations [facility](T roop_AD Only) [facility] TELE CONSULT [id number] Notes Entered by: LAYNE DE LEON 07 Jun 2020 1017 ------- ------- ------- ------- -- alexandro singh on needed CLAUDIOALBERTINA BRADEN 06/07 Released to Self Care [facility](D isease Manage ent Clinic) [facility] unization Clinic) OUTPATIENT [id number] Notes Entered by: Tamiko JULIEN 03 Jul 2020 1558 ------- ------- ------- ------- -- covid JAIRO Soliman 07/03 Released w/o Limitations [facility](I mmuniza tion Clinic) [facility](Tro op_AD Only) OUTPATIENT [id number] [place] [address] ent, PCM:MARLON HUYNH BRADLEY D 07/25 Released w/o Limitations [facility](T roop_AD Only) [facility](Imm unization Clinic) OUTPATIENT [id number] Notes Entered by: BARBARA HALL 30 Jul 2020 1352 ------- ------- ------- ------- -- 2nd Dose BILLY LEY 07/30 Released w/o Limitations [facility](I mmuniza tion Clinic) [facility](Tro op_AD Only) TELE CONSULT [id number] Notes Entered by: Vanessa SANDOVAL 14 Aug 2020 1455 ------- ------- ------- ------- -- KAIDEN: Appoint BRANDEN Moyer 08/14 Advice Assessment [facility](T roop_AD Only) [facility](Tro op_AD Only) OUTPATIENT [id number] Medicat ion evaluat ion PEYTON DAVIS Jennifer 08/17 Released w/o Limitations [facility](T roop_AD Only) [facility](Opt ometry Clinic) OUTPATIENT [id number] Routine exam, deployi ANNIE Sanders 08/21 Released w/o Limitations [facility](O ptometr y Clinic) [facility](Tro op_AD Only) TELE CONSULT [id number] Notes Entered by: Kim HE 28 Aug 2020 0931 ------- ------- ------- ------- -- CAC/GS- APPT SCREENI NG/ LOWER BACK PAIN BRENNON MEJIA 08/28 Advice Assessment [facility](T roop_AD Only) [facility](Phy sical Therapy Clinic) OUTPATIENT [id number] JASE KNIGHT 08/30 Released w/o Limitations [facility](P hysical Therapy Clinic) [facility](Tro op_AD Only) OUTPATIENT [id number] 4 edith [email or web address]. [email or web address] numbnes s in both feet REJI PLATT 09/26 Released w/o Limitations [facility](T roop_AD Only) [facility](Tro op_AD Only) TELE CONSULT [id number] Notes Entered by: REJI PLATT 04 Oct 2020 1128 ------- ------- ------- ------- -- labs REJI PLATT 10/04 [facility](T roop_AD Only) [facility](Tro op_AD Only) TELE CONSULT [id number] Notes Entered by: Berto HE 22 Oct 2020 0756 ------- ------- ------- ------- -- NETWORK RESULTS -NEUROL OGY 10/13/19 PADMA SETH 10/22 Other Not Elsewhere Classified [facility](T roop_AD Only) [facility](Tro op_AD Only) TELE CONSULT [id number] Notes Entered by: CHEYENNE CARDENAS 31 Oct 2020 1238 ------- ------- ------- ------- -- [facility] PEYTON DAVIS 10/31 [facility](T roop_AD Only) [facility](Tro op_AD Only) TELE CONSULT [id number] 5 Notes Entered by: PEYTON DAVIS 16 Nov 2020 1127 ------- ------- ------- ------- -- [facility] PEYTON DAVIS 11/16 [facility](T roop_AD Only) [facility] A Team) OUTPATIENT [id number] LOWER BACK PAIN;x2 YRS;Px 6/10;DE PLOYED; F2F APPT MIKE HASSAN 02/08 Released w/o Limitations [facility] ([facility] A Team) [employer] Anil [place]ORELOS [place]) OUTPATIENT [id number] GOPAL WARD 07/01 Released w/o Limitations [facility] Anil MORELOS [place] [facility](Tro op_AD Only) OUTPATIENT [id number] 4 VE; [phone]; LOWER BACK PAIN ARASH CERDA 07/02 Released w/o Limitations [facility](T roop_AD Only) [facility](Tro op_AD Only) TELE CONSULT [id number] Notes Entered by: DC DE LA CRUZ 09 Jul 2021 0825 ------- ------- ------- ------- -- STACEY JOSEPH 07/09 Released to Self Care [facility](T roop_AD Only) [facility](Tro op_AD Only) TELE CONSULT [id number] Notes Entered by: MERON MIRANDA 16 Jul 2021 0807 ------- ------- ------- ------- -- KAIDEN: Sleep study results ARASH CERDA RUSH 07/16 [employer](T roop_AD Only) [employer](BOM C 1 Phys Exams) OUTPATIENT [id number] [facility] 07/17 Released w/o Limitations [employer](B [facility] 1 Phys Exams) [facility](Tro op_AD Only) TELE CONSULT [id number] Notes Entered by: ZULEMA LOPEZ 18 Jul 2021 1048 ------- ------- ------- ------- -- NETWORK RESULTS MRI SPINE W/O 022 BRENNON MEJIA 07/18 Advice Assessment [employer](T roop_AD Only) [employer](Carlos eficiarie s_Non-AD Only) OUTPATIENT [id number] DARNELL Holly 08/06 Released w/o Limitations [facility](B enefici aries_N on-AD Only) [facility](Phy sical Therapy Clinic) OUTPATIENT [id number] [facility] in other specifi ed circums ALAYNA Logan 08/13 Released w/o Limitations [facility](P hysical Therapy Clinic) [facility](Phy [facility]ical Therapy Clinic) OUTPATIENT [id number] NONI FELDER 08/20 Released w/o Limitations [facility](P hysical Therapy Clinic) [facility](Phy sical Therapy Clinic) OUTPATIENT [id number] NONI FELDER 08/22 Released w/o Limitations [facility](P hysical Therapy Clinic) [facility](Tro op_AD Only) OUTPATIENT [id number] [phone] [email or web address] Follow up PRASHANT ARASH BEVERLY 08/23 Released w/o Limitations [facility](T roop_AD Only) [facility](Phy sical Therapy Clinic) OUTPATIENT [id number] JAI MCRAE 08/29 Released w/o Limitations [facility](P hysical Therapy Clinic) [facility](Tro op_AD Only) TELE CONSULT [id number] Notes Entered by: ZULEMA LOPEZ 05 Sep 2021 1426 ------- ------- ------- ------- -- NETWORK RESULTS ORTHOPE DICS 022 ROBBY RICHARDS 09/05 [facility](T roop_AD Only) [facility](Tro op_AD Only) TELE CONSULT [id number] Notes Entered by: DANYELLE FIERRO 06 Sep 2021 1436 ------- ------- ------- ------- -- Pain Mgt Referra l Request per Ortho Spine PADMA SETH 09/06 Other Not Elsewhere Classified [facility](T roop_AD Only) [facility]) OUTPATIENT [id number] ANNUAL PEG 533A DIONNA PITTS 09/09 Released w/o Limitations [facility]) [facility]) OUTPATIENT [id number] Notes Entered by: EFREN HOWELL 2021 0713 ------- ------- ------- ------- -- FOLLOW UP LYNDA CUELLO 09/11 Released w/o Limitations [facility]) [facility]) OUTPATIENT [id number] POS STS / [phone] MIKE RAMOS 09/12 Released w/o Limitations [facility]) [facility](Tro op_AD Only) OUTPATIENT [id number] [phone] edith [email or web address] TAYLOROMKAR PEYTON Rodriguez 09/13 Released w/o Limitations [facility](T roop_AD Only) [facility]) OUTPATIENT [id number] HEARING AIDES EVAL/[phone] MIKE RAMOS 09/17 Released w/o Limitations [facility]( earing [facility] ation [facility]) [facility] Practice BHOP/Coum jarod) TELE CONSULT [id number] Notes Entered by: SUSANA NESS 19 Sep 2021 0840 ------- ------- ------- ------- -- Initial appt per FREDDY Taylor 09/19 [facility](F amily Practic e BHOP/Co umadin) [facility] Practice BHOP/Coum jarod) TELE CONSULT [id number] Notes Entered by: ME LIBRA LAKE 23 Sep 2021 0835 ------- ------- ------- ------- -- Care Facilit ation Introdu ction and Intake CHRIS LAKE 09/23 Other Not Elsewhere Classified [facility](F amily Practic e BHOP/Co umadin) [facility] Practice BHOP/Coum jarod) OUTPATIENT [id number] Initial appt per FREDDY Taylor 09/23 Released w/o Limitations [facility](F amily Practic e BHOP/Co umadin) [facility](Tro op_AD Only) TELE CONSULT [id number] Notes Entered by: MONTSE HILARIO RA 24 Sep 2021 0719 ------- ------- ------- ------- -- Tobacco Cessati on medicat ion ELIDA DAVIS 09/24 [facility](T roop_AD Only) [facility]) OUTPATIENT [id number] SEN Fitting MIKE RAMOS 10/03 Released w/o Limitations [facility]) [facility](Fam [facility] Practice BHOP/Coum jarod) OUTPATIENT [id number] F2F F/U 2WKS SULAIMAN FREDDY 10/07 Released w/o Limitations [facility](F amily Practic e BHOP/Co umadin) [facility](Tro op_AD Only) TELE CONSULT [id number] Notes Entered by: Kim HE 10 Oct 2021 0754 ------- ------- ------- ------- -- NETWORK RESULTS - ANESTHE SIOLOGY 022 ARASH CERDA 10/10 [facility](T roop_AD Only) [facility](Pha rm-D) OUTPATIENT [id number] initial mtm and tobacco cessati on ve ELIDA DAVIS 10/10 Released w/o Limitations [facility](P harm-D) [facility](Tro op_AD Only) TELE CONSULT [id number] Notes Entered by: ELIDA DAVIS 11 Oct 2021 1404 ------- ------- ------- ------- -- Profile Needed ARASH CERDA 10/11 [facility](T roop_AD Only) [facility](Tro op_AD Only) TELE CONSULT [id number] Notes Entered by: ALBERTINA DIAZ 14 Oct 2021 1200 ------- ------- ------- ------- -- cpap supply order JOVANY ELAM 10/14 Released to Self Care [facility](T roop_AD Only) [facility](Tro op_AD Only) OUTPATIENT [id number] F2F for medicat ion follow- up Zoloft - 6weeks ARASH CERDA 10/25 Released w/o Limitations [facility](T roop_AD Only) [facility] BHOP/Coum jarod) TELE CONSULT [id number] Notes Entered by: ME LIBRA LAKE 25 Oct 2021 1533 ------- ------- ------- ------- -- 4 Week Care Facilit ation Follow- up CHRIS LAKE 10/25 Other Not Elsewhere Classified [facility](F amily Practic e BHOP/Co umadin) [facility](Tro op_AD Only) TELE CONSULT [id number] Notes Entered by: Kim HE 28 Oct 2021 0831 ------- ------- ------- ------- -- NETWORK RESULTS - ANESTHE SIOLOGY OPERATI VE REPORT 022 ARASH CERDA 10/28 [facility](T roop_AD Only) [facility](BOM C 1 Phys Exams) OUTPATIENT [id number] LETI SNOW 10/28 Released w/o Limitations [facility](B [facility] 1 Phys Exams) [address] [place] [address] Group(Pha rm-D) OUTPATIENT [id number] tobacco cessati on f/u ve ELIDA DAVIS 10/29 Released w/o Limitations [facility](P harm-D) [facility](Dis ease Managemen t Clinic) TELE CONSULT [id number] Notes Entered by: LAYNE DE LEON 04 Nov 2021 1440 ------- ------- ------- ------- -- ALBERTINA Smith 11/04 Released to Self Care [facility](D isease Managem ent Clinic) [facility] Practice BHOP/Coum jarod) OUTPATIENT [id number] F2F F/U 4WFREDDY OSEGUERA 11/13 Released w/o Limitations [facility](F amily Practic e BHOP/Co umadin) [facility] Practice BHOP/Coum jarod) OUTPATIENT [id number] F2F F/U 1 WEEK KENDRASARAHI FREDDY 11/22 Released w/o Limitations [facility](F amily Practic e BHOP/Co umadin) [facility](Tro op_AD Only) TELE CONSULT [id number] Notes Entered by: Berto HE 25 Nov 2021 0740 ------- ------- ------- ------- -- NETWORK RESULTS -ANESTH ESIOLOG Y OP NOTE 2 MARCIAL ARREGUIN 11/25 [facility](T roop_AD Only) [facility] Practice BHOP/Coum jarod) TELE CONSULT [id number] Notes Entered by: ME LIBRA LAKE 02 Dec 2021 1212 ------- ------- ------- ------- -- 8 Week Care Facilit ation Follow- up CHRIS LAKE 12/02 Other Not Elsewhere Classified [facility](F amily Practic e BHOP/Co umadin) [facility](Pha rm-D) OUTPATIENT [id number] tobacco cessati on f/u ve ELIDA DAVIS 12/04 Released w/o Limitations [facility](P harm-D) [facility](Tro op_AD Only) OUTPATIENT [id number] VE for medicat ion follow- up and discuss vera tanner medicat ions for anxiety ARASH CERDA 12/06 Released w/o Limitations [facility](T roop_AD Only) [facility](Tro op_AD Only) TELE CONSULT [id number] Notes Entered by: ALBERTINA DIAZ 11 Dec 2021 0950 ------- ------- ------- ------- -- NETWORK REQUEST - CPAP REFERALBERTINA REYES 12/11 Other Not Elsewhere Classified [facility](T roop_AD Only) [facility](Dis ease Managemen t Clinic) TELE CONSULT [id number] Notes Entered by: LAYNE DE LEON 11 Dec 2021 1318 ------- ------- ------- ------- -- lab update ALBERTINA SNYDER 12/11 Released to Self Care [facility](D isease Manage ent Clinic) [facility]) TELE CONSULT [id number] Notes Entered by: ELIDA DVAIS 11 Dec 2021 1545 ------- ------- ------- ------- -- Lab Results Availab le ELIDA DAVIS 12/11 [facility](P harm-D) [facility] rm-D) OUTPATIENT [id number] dm and triglyc erides initial ve ELIDA DAVIS 12/20 Released w/o Limitations [facility](P harm-D) [facility](Tro op_AD Only) TELE CONSULT [id number] Notes Entered by: ELIDA DAVIS 24 Dec 2021 1344 ------- ------- ------- ------- -- Appoint ment No-Show and elevate d triglyc erides and DM DICK HERNANDEZ 12/24 Advice Assessment [facility](T roop_AD Only) [facility]) OUTPATIENT [id number] tobacco cessati on f/u ve ELIDA DAVIS 12/30 Released w/o Limitations [facility](P harm-D) [facility] rm-D) OUTPATIENT [id number] dm and cholest deana f/u ve ELIDA DAVIS 01/03 Released w/o Limitations [facility](P harm-D) [facility](Tro op_AD Only) OUTPATIENT [id number] F2F per PCM elevate d triglyc erides ARASH CERDA 01/06 Released w/o Limitations [facility](T roop_AD Only) [facility] [id number] 1 Notes Entered by: ELIDA DAVIS 08 Jan 2022 1013 ------- ------- ------- ------- -- Lab Results Availab ELIDA Ignacio 01/08 [facility](P harm-D) [facility](Tro op_AD Only) TELE CONSULT [id number] Notes Entered by: Berto HE 17 Jan 2022 0830 ------- ------- ------- ------- -- NETWORK RESULTS -ANESTH ESIJULIANNE Dupont 01/16/20 22 ARASH CERDA 01/[address] [place] [address] Group(T roop_AD Only) [address] [place] [address] Group(Fam [facility] Practice BHOP/Coum jarod) TELE CONSULT [id number] Notes Entered by: ME LIBRA LAKE 17 Jan 2022 1352 ------- ------- ------- ------- -- 12 Week Care Facilit ation Follow- up CHRIS LAKE 01/17 Other Not Elsewhere Classified [address] [place] [address] Group(F amily Practic e BHOP/Co umadin) [address] [place] [address] [id number] tobacco cessati on f/u ve ELIDA DAVIS 01/23 Released w/o Limitations [facility](P harm-D) [facility] [id number] dm and cholest deana f/u ve ELIDA DAVIS 01/29 Released w/o Limitations [address] [place] [address] Group(P harm-D) [facility](Tro op_AD Only) TELE CONSULT [id number] Notes Entered by: ALBERTINA DIAZ 29 Jan 2022 1032 ------- ------- ------- ------- -- Network Results -SHADY Griggs 01/29 [facility](T roop_AD Only) [facility](Pha rm-D) TELE CONSULT [id number] Notes Entered by: ELIDA DAVIS 04 Feb 2022 1032 ------- ------- ------- ------- -- Non-For mulary Drug Request - Trulici ty- Approve d ELIDA DAVIS 02/04 [facility](P harm-D) [facility] Practice BHOP/Coum jarod) TELE CONSULT [id number] Notes Entered by: ME LIBRA LAKE 06 Feb 2022 1636 ------- ------- ------- ------- -- [facility] CHRIS Natarajan 02/06 Other Not Elsewhere Classified [facility](F amily Practic e BHOP/Co umadin) [facility](Tro op_AD Only) TELE CONSULT [id number] Notes Entered by: Berto HE 07 Feb 2022 0809 ------- ------- ------- ------- -- NETWORK RESULTS -ORTHOP EDIC 02/01/20 22 ARASH CERDA 02/07 [facility](T roop_AD Only) [facility](Tro op_AD Only) TELE CONSULT [id number] Notes Entered by: Nayla SETH 14 Feb 2022 0905 ------- ------- ------- ------- -- PADMA CORLEY 02/14 Referred for Appointment [facility](T roop_AD Only) [facility] Practice BHOP/Coum jarod) TELE CONSULT [id number] Notes Entered by: ME LIBRA LAKE 17 Feb 2022 1541 ------- ------- ------- ------- -- Care [facility] vinicio Diaz ge Summary CHRIS LAKE 02/17 Other Not Elsewhere Classified [employer] [facility](F amily Practic e BHOP/Co umadin) [facility](Pha rm-D) OUTPATIENT [id number] dm and cholest deana f/u ve ELIDA DAVIS 02/28 Released w/o Limitations [employer](P harm-D) [facility](Pha rm-D) TELE CONSULT [id number] Notes Entered by: ELIDA DAVIS 06 Mar 2022 1443 ------- ------- ------- ------- -- Non-For mulary Drug Request - Belem sauh- ApproELIDA Vela 03/06 [facility](P harm-D) Procedures Combined list of: 1) Procedures from Department of Veterans Affairs facilities going back up to thelast 18 months, not all VA non-surgical procedures are included; 2) All procedures from the Department of Defense facilities. Procedure Procedure Type Code Date Perfomer Comments Sourc e No data available for this section Ambulatory [facility] MEDICAL NUTRITION THERAPY; GROUP (2 OR MORE INDIVIDUAL(S)), EACH 30 MINUTES 11/26 DoD NONINVASIVE EAR OR PULSE OXIMETRY FOR OXYGEN SATURATION; SINGLE DETERMINATION 10/31 DoD ALCOHOL AND/OR DRUG SERVICES, BRIEF INTERVENTION, PER 15 MINUTES 12/09 DoD ALCOHOL AND/OR DRUG SERVICES, BRIEF INTERVENTION, PER 15 MINUTES 10/28 DoD PSYCHIATRIC EVALUATION OF HOSPITAL RECORDS, OTHER PSYCHIATRIC REPORTS, PSYCHOMETRIC AND/OR PROJECTIVE TESTS, AND OTHER ACCUMULATED DATA FOR MEDICALDIAGNOSTIC PURPOSES 09/07 DoD SUPP &MATERIAL (EXCEPT SPECTACLE),PROVID,THE PHYS/OTH QUALIFIED HEALTH SUPERVISOR MATRIX OVER &ABOVE THOSE USUALLY INCLD W THE OFFICE VISIT/OTH SER RENDERED (LIST DRUG,TRAYS,SUPP,OR MATERIAL PROVID) 08/08 DoD MEDICAL NUTRITION THERAPY; GROUP (2 OR MORE INDIVIDUAL(S)), EACH 30 MINUTES 07/16 DoD MEDICAL NUTRITION THERAPY; GROUP (2 OR MORE INDIVIDUAL(S)), EACH 30 MINUTES 05/04 DoD WAIVER SERVICES; NOT OTHERWISE SPECIFIED (NOS) 03/05 [facility] TELE ASSESS & MGT SRV PROV QUAL NONPHYS HLTH CARE PRO TO EST PAT,PARENT,GUARD NOT ORIG REL ASSESS & MGT SRV PROV W/IN PREV 7 DAYS NOR LEAD ASSESS & MGT SRV/PX W/IN NXT 24 HR/SOON APT;5-10 MIN MED DIS 02/14 DoD WAIVER SERVICES; NOT OTHERWISE SPECIFIED (NOS) 02/03 DoD TELE ASSESS & MGT SRV PROV QUAL NONPHYS HLTH CARE PRO TO EST PAT,PARENT,GUARD NOT ORIG REL ASSESS & MGT SRV PROV W/IN PREV 7 DAYS NOR LEAD ASSESS & MGT SRV/PX W/IN NXT 24 HR/SOON APT;5-10 MIN MED DIS 01/30 DoD WAIVER SERVICES; NOT OTHERWISE SPECIFIED (NOS) 01/28 DoD WAIVER SERVICES; NOT OTHERWISE SPECIFIED (NOS) 01/06 DoD WAIVER SERVICES; NOT OTHERWISE SPECIFIED (NOS) 12/31 DoD BRIEF COMM TECH-BASE SERV,E.G. VIRT CHK-IN,BY PHYS/OTH QUAL HCP,RPT E&M SERV,PROV TO EST PT,NOT ORIG FRM REL E/M SERV PROV W/IN PREV 7DAY NOR LEAD TO E/M SRV/PX W/IN NEXT 24HR/SOON DANNY; 5-10 MIN DISC 12/12 DoD WAIVER SERVICES; NOT OTHERWISE SPECIFIED (NOS) 12/05 DoD BRIEF EMOTIONAL/BEHAVIORAL ASSESSMENT (EG, DEPRESSION INVENTORY, ATTENTION-DEFICIT/HYP ERACTIVITY DISORDER [ADHD] SCALE), WITH SCORING AND DOCUMENTATION, PER STANDARDIZED INSTRUMENT 12/02 DoD BRIEF EMOTIONAL/BEHAVIORAL ASSESSMENT (EG, DEPRESSION INVENTORY, ATTENTION-DEFICIT/HYP ERACTIVITY DISORDER [ADHD] SCALE), WITH SCORING AND DOCUMENTATION, PER STANDARDIZED INSTRUMENT 11/22 DoD BRIEF EMOTIONAL/BEHAVIORAL ASSESSMENT (EG, DEPRESSION INVENTORY, ATTENTION-DEFICIT/HYP ERACTIVITY DISORDER [ADHD] SCALE), WITH SCORING AND DOCUMENTATION, PER STANDARDIZED INSTRUMENT 11/13 DoD TELE ASSESS & MGT SRV PROV QUAL NONPHYS HLTH CARE PRO TO EST PAT,PARENT,GUARD NOT ORIG REL ASSESS & MGT SRV PROV W/IN PREV 7 DAYS NOR LEAD ASSESS & MGT SRV/PX W/IN NXT 24H/SOON APT; 21-30 MIN MED DIS 11/04 DoD WAIVER SERVICES; NOT OTHERWISE SPECIFIED (NOS) 10/30 DoD ADMINISTRATION OF PATIENT-FOCUSED HEALTH RISK ASSESSMENT INSTRUMENT (EG, HEALTH HAZARD APPRAISAL) WITH SCORING AND DOCUMENTATION, PER STANDARDIZED INSTRUMENT 10/28 DoD BRIEF EMOTIONAL/BEHAVIORAL ASSESSMENT (EG, DEPRESSION INVENTORY, ATTENTION-DEFICIT/HYP ERACTIVITY DISORDER [ADHD] SCALE), WITH SCORING AND DOCUMENTATION, PER STANDARDIZED INSTRUMENT 10/25 DoD WAIVER SERVICES; NOT OTHERWISE SPECIFIED (NOS) 10/11 DoD BRIEF EMOTIONAL/BEHAVIORAL ASSESSMENT (EG, DEPRESSION INVENTORY, ATTENTION-DEFICIT/HYP ERACTIVITY DISORDER [ADHD] SCALE), WITH SCORING AND DOCUMENTATION, PER STANDARDIZED INSTRUMENT 10/07 [facility] DISPENSING FEE, UNSPECIFIED HEARING AID 10/03 [facility] BRIEF EMOTIONAL/BEHAVIORAL ASSESSMENT (EG, DEPRESSION INVENTORY, ATTENTION-DEFICIT/HYP ERACTIVITY DISORDER [ADHD] SCALE), WITH SCORING AND DOCUMENTATION, PER STANDARDIZED INSTRUMENT 09/23 [facility] HEARING AID EXAMINATION AND SELECTION; MONAURAL 09/17 [facility] BRIEF EMOTIONAL/BEHAVIORAL ASSESSMENT (EG, DEPRESSION INVENTORY, ATTENTION-DEFICIT/HYP ERACTIVITY DISORDER [ADHD] SCALE), WITH SCORING AND DOCUMENTATION, PER STANDARDIZED INSTRUMENT 09/16 [facility] HEALTH BEHAVIOR INTERVENTION, INDIVIDUAL, [id number]; EACH ADDITIONAL 15 MINUTES (LIST SEPARATELY IN ADDITION TO CODE FOR PRIMARY SERVICE) 09/12 [facility] PATIENT EDUCATION, NOT OTHERWISE CLASSIFIED, NON-PHYSICIAN PROVIDER, INDIVIDUAL, PER SESSION 09/11 [facility] PATIENT EDUCATION, NOT OTHERWISE CLASSIFIED, NON-PHYSICIAN PROVIDER, INDIVIDUAL, PER SESSION 09/09 [facility] APPLICATION OF A MODALITY TO 1 OR MORE AREAS; HOT OR COLD PACKS 08/29 DoD BRIEF COMM TECH-BASE SERV,E.G. VIRT CHK-IN,BY PHYS/OTH QUAL HCP,RPT E&M SERV,PROV TO EST PT,NOT ORIG FRM REL E/M SERV PROV W/IN PREV 7DAY NOR LEAD TO E/M SRV/PX W/IN NEXT 24HR/SOON DANNY; 5-10 MIN DISC 08/23 DoD APPLICATION OF A MODALITY TO 1 OR MORE AREAS; HOT OR COLD PACKS 08/22 DoD APPLICATION OF A MODALITY TO 1 OR MORE AREAS; HOT OR COLD PACKS 08/20 DoD APPLICATION OF A MODALITY TO 1 OR MORE AREAS; HOT OR COLD PACKS 08/13 DoD ADMINISTRATION OF PATIENT-FOCUSED HEALTH RISK ASSESSMENT INSTRUMENT (EG, HEALTH HAZARD APPRAISAL) WITH SCORING AND DOCUMENTATION, PER STANDARDIZED INSTRUMENT 08/07 DoD TELE ASSESS & MGT SRV PROV QUAL NONPHYS HLTH CARE PRO TO EST PAT,PARENT,GUARD NOT ORIG REL ASSESS & MGT SRV PROV W/IN PREV 7 DAYS NOR LEAD ASSESS & MGT SRV/PX W/IN NXT 24H/SOON APT; 11-20 MIN MED DIS 07/18 DoD BRIEF COMM TECH-BASE SERV,E.G. VIRT CHK-IN,BY PHYS/OTH QUAL HCP,RPT E&M SERV,PROV TO EST PT,NOT ORIG FRM REL E/M SERV PROV W/IN PREV 7DAY NOR LEAD TO E/M SRV/PX W/IN NEXT 24HR/SOON DANNY; 5-10 MIN DISC 07/17 DoD TELE ASSESS & MGT SRV PROV QUAL NONPHYS HLTH CARE PRO TO EST PAT,PARENT,GUARD NOT ORIG REL ASSESS & MGT SRV PROV W/IN PREV 7 DAYS NOR LEAD ASSESS & MGT SRV/PX W/IN NXT 24H/SOON APT; 11-20 MIN MED DIS 07/09 DoD BRIEF COMM TECH-BASE SERV,E.G. VIRT CHK-IN,BY PHYS/OTH QUAL HCP,RPT E&M SERV,PROV TO EST PT,NOT ORIG FRM REL E/M SERV PROV W/IN PREV 7DAY NOR LEAD TO E/M SRV/PX W/IN NEXT 24HR/SOON DANNY; 5-10 MIN DISC 07/02 DoD TELE ASSESS & MGT SRV PROV QUAL [facility] CARE PRO TO EST PAT,PARENT,GUARD NOT ORIG REL ASSESS & MGT SRV PROV W/IN PREV 7 DAYS NOR LEAD ASSESS & MGT SRV/PX W/IN NXT 24 HR/SOON APT;5-10 MIN MED DIS 10/04 DoD WAIVER SERVICES; NOT OTHERWISE SPECIFIED (NOS) 09/26 DoD THERAPEUTIC PROCEDURE, 1 OR MORE AREAS, EACH 15 MINUTES; THERAPEUTIC EXERCISES TO DEVELOP STRENGTH AND ENDURANCE, RANGE OF MOTION AND FLEXIBILITY 08/30 DoD TELE ASSESS & MGT SRV PROV QUAL NONPHYS HLTH CARE PRO TO EST PAT,PARENT,GUARD NOT ORIG REL ASSESS & MGT SRV PROV W/IN PREV 7 DAYS NOR LEAD ASSESS & MGT SRV/PX W/IN NXT 24H/SOON APT; 11-20 MIN MED DIS 08/28 DoD SCANNING COMPUTERIZED OPHTHALMIC DIAGNOSTIC IMAGING, POSTERIOR SEGMENT, WITH INTERPRETATION AND REPORT, UNILATERAL OR BILATERAL; RETINA 08/22 DoD WAIVER SERVICES; NOT OTHERWISE SPECIFIED (NOS) 07/26 DoD DIABETIC MANAGEMENT PROGRAM, NURSE VISIT 06/07 DoD FOOT EXAMINATION PERFORMED (INCLUDES EXAMINATION THROUGH VISUAL INSPECTION, SENSORY EXAM WITH MONOFILAMENT, AND PULSE EXAM - REPORT WHEN ANY OF THE 3 COMPONENTS ARE COMPLETED) (DM) 04/19 DoD ADMINISTRATION OF PATIENT-FOCUSED HEALTH RISK ASSESSMENT INSTRUMENT (EG, HEALTH HAZARD APPRAISAL) WITH SCORING AND DOCUMENTATION, PER STANDARDIZED INSTRUMENT 03/16 DoD BRIEF COMM TECH-BASE SERV,E.G. VIRT CHK-IN,BY PHYS/OTH QUAL HCP,RPT E&M SERV,PROV TO EST PT,NOT ORIG FRM REL E/M SERV PROV W/IN PREV 7DAY NOR LEAD TO E/M SRV/PX W/IN NEXT 24HR/SOON DANNY; 5-10 MIN DISC 02/21 DoD PSYCHOLOGICAL OR NEUROPSYCHOLOGICAL TEST ADMINISTRATION, WITH SINGLE AUTOMATED, STANDARDIZED INSTRUMENT VIA ELECTRONIC PLATFORM, WITH AUTOMATED RESULT ONLY 12/27 DoD ADMINISTRATION OF PATIENT-FOCUSED HEALTH RISK ASSESSMENT INSTRUMENT (EG, HEALTH HAZARD APPRAISAL) WITH SCORING AND DOCUMENTATION, PER STANDARDIZED INSTRUMENT 12/11 DoD FITTING OF SPECTACLES, EXCEPT FOR APHAKIA; MONOFOCAL 11/24 DoD EDUCATION &TRAINING, PATIENT SELF-MGT QUALIFIED, NONPHYSICIAN HEALTH SUPERVISOR MATRIX USING STDIZED CURRICULUM, [id number] W THE PATIENT (COULD INCL CAREGIVER/FAMILY) EA 30 MIN; INDIVIDUAL PATIENT 11/23 DoD TELE ASSESS & MGT SRV PROV QUAL NONPHYS HLTH CARE PRO TO EST PAT,PARENT,GUARD NOT ORIG REL ASSESS & MGT SRV PROV W/IN PREV 7 DAYS NOR LEAD ASSESS & MGT SRV/PX W/IN NXT 24H/SOON APT; 11-20 MIN MED DIS 11/17 DoD OSTEOPATHIC MANIPULATIVE TREATMENT (OMT); 1-2 BODY REGIONS INVOLVED 05/31 DoD OSTEOPATHIC MANIPULATIVE TREATMENT (OMT); 1-2 BODY REGIONS INVOLVED 05/24 DoD OSTEOPATHIC MANIPULATIVE TREATMENT (OMT); 1-2 BODY REGIONS INVOLVED 05/13 DoD ADMINISTRATION OF PATIENT-FOCUSED HEALTH RISK ASSESSMENT INSTRUMENT (EG, HEALTH HAZARD APPRAISAL) WITH SCORING AND DOCUMENTATION, PER STANDARDIZED INSTRUMENT 02/04 DoD ONLINE ASSESS &MANAG SERV PROVIDE,A QUAL NONPHYS HCP TO AN ESTABLISHED PAT/GUARDIAN,NOT ORIGINAT FRM RELAT ASSESS &MANAG SERV PROVIDE W/IN THE PREV 7 DAYS,USE THE [employer] NETWORK 01/07 DoD DETERMINATION OF REFRACTIVE STATE 09/08 DoD HEALTH AND BEHAVIOR INTERVENTION, EACH 15 MINUTES, [id number]; INDIVIDUAL 08/17 DoD ONLINE ASSESS &MANAG SERV PROVIDE,A QUAL NONPHYS HCP TO AN ESTABLISHED PAT/GUARDIAN,NOT ORIGINAT FRM RELAT ASSESS &MANAG SERV PROVIDE W/IN THE PREV 7 DAYS,USE THE [employer] NETWORK 07/05 DoD TELE ASSESS & MGT SRV PROV QUAL NONPHYS HLTH CARE PRO TO EST PAT,PARENT,GUARD NOT ORIG REL ASSESS & MGT SRV PROV W/IN PREV 7 DAYS NOR LEAD ASSESS & MGT SRV/PX W/IN NXT 24H/SOON APT; 11-20 MIN MED DIS 07/01 DoD HEALTH&BEHAV ASSESSMENT (EG, HEALTH-FOC CLINICAL INTERVIEW, BEHAVIORAL OBSERVATIONS, PSYCHOPHYSICOLOGICAL MONITOR, HEALTH-ORIENT QUESTIONNAIRES), EA 15 MIN [id number] W THE PATIENT; INIT ASSESSMENT 06/28 DoD TELE ASSESS & MGT SRV PROV QUAL NONPHYS HLTH CARE PRO TO EST PAT,PARENT,GUARD NOT ORIG REL ASSESS & MGT SRV PROV W/IN PREV 7 DAYS NOR LEAD ASSESS & MGT SRV/PX W/IN NXT 24 HR/SOON APT;5-10 MIN MED DIS 06/08 DoD TELE ASSESS & MGT SRV PROV QUAL NONPHYS HLTH CARE PRO TO EST PAT,PARENT,GUARD NOT ORIG REL ASSESS & MGT SRV PROV W/IN PREV 7 DAYS NOR LEAD ASSESS & MGT SRV/PX W/IN NXT 24 HR/SOON APT;5-10 MIN MED DIS 12/22 DoD ONLINE ASSESS &MANAG SERV PROVIDE,A QUAL NONPHYS HCP TO AN ESTABLISHED PAT/GUARDIAN,NOT ORIGINAT FRM RELAT ASSESS &MANAG SERV PROVIDE W/IN THE PREV 7 DAYS,USE THE [employer]/SIMILAR ELECT COMM NETWORK 12/09 DoD TELE ASSESS & MGT SRV PROV QUAL NONPHYS HLTH CARE PRO TO EST PAT,PARENT,GUARD NOT ORIG REL ASSESS & MGT SRV PROV W/IN PREV 7 DAYS NOR LEAD ASSESS & MGT SRV/PX W/IN NXT 24 HR/SOON APT;5-10 MIN MED DIS 12/08 DoD ONLINE ASSESS &MANAG SERV PROVIDE,A QUAL NONPHYS HCP TO AN ESTABLISHED PAT/GUARDIAN,NOT ORIGINAT FRM RELAT ASSESS &MANAG SERV PROVIDE W/IN THE PREV 7 DAYS,USE THE [employer] NETWORK 12/07 DoD MANUAL THERAPY TECHNIQUES (EG, MOBILIZATION/ MANIPULATION, MANUAL LYMPHATIC DRAINAGE, MANUAL TRACTION), 1 OR MORE REGIONS, EACH 15 MINUTES 09/08 DoD MANUAL THERAPY TECHNIQUES (EG, MOBILIZATION/ MANIPULATION, MANUAL LYMPHATIC DRAINAGE, MANUAL TRACTION), 1 OR MORE REGIONS, EACH 15 MINUTES 08/19 DoD MANUAL THERAPY TECHNIQUES (EG, MOBILIZATION/ MANIPULATION, MANUAL LYMPHATIC DRAINAGE, MANUAL TRACTION), 1 OR MORE REGIONS, EACH 15 MINUTES 08/06 DoD MANUAL THERAPY TECHNIQUES (EG, MOBILIZATION/ MANIPULATION, MANUAL LYMPHATIC DRAINAGE, MANUAL TRACTION), 1 OR MORE REGIONS, EACH 15 MINUTES 07/27 DoD TELE ASSESS & MGT SRV PROV QUAL NONPHYS HLTH CARE PRO TO EST PAT,PARENT,GUARD NOT ORIG REL ASSESS & MGT SRV PROV W/IN PREV 7 DAYS NOR LEAD ASSESS & MGT SRV/PX W/IN NXT 24 HR/SOON APT;5-10 MIN MED DIS 01/05 DoD EXCISION OF NAIL AND NAIL MATRIX, PARTIAL OR COMPLETE (EG, INGROWN OR DEFORMED NAIL), FOR PERMANENT REMOVAL 11/11 DoD DISEASE MANAGEMENT PROGRAM, FOLLOW-UP/REASSESSMEN T 11/07 DoD TELE ASSESS & MGT SRV PROV QUAL NONPHYS HLTH CARE PRO TO EST PAT,PARENT,GUARD NOT ORIG REL ASSESS & MGT SRV PROV W/IN PREV 7 DAYS NOR LEAD ASSESS & MGT SRV/PX W/IN NXT 24 HR/SOON APT;5-10 MIN MED DIS 11/11 DoD TELE ASSESS & MGT SRV PROV QUAL NONPHYS HLTH CARE PRO TO EST PAT,PARENT,GUARD NOT ORIG REL ASSESS & MGT SRV PROV W/IN PREV 7 DAYS NOR LEAD ASSESS & MGT SRV/PX W/IN NXT 24 HR/SOON APT;5-10 MIN MED DIS 08/28 DoD TELE ASSESS & MGT SRV PROV QUAL NONPHYS HLTH CARE PRO TO EST PAT,PARENT,GUARD NOT ORIG REL ASSESS & MGT SRV PROV W/IN PREV 7 DAYS NOR LEAD ASSESS & MGT SRV/PX W/IN NXT 24 HR/SOON APT;5-10 MIN MED DIS 02/22 DoD TELE ASSESS & MGT SRV PROV QUAL NONPHYS HLTH CARE PRO TO EST PAT,PARENT,GUARD NOT ORIG REL ASSESS & MGT SRV PROV W/IN PREV 7 DAYS NOR LEAD ASSESS & MGT SRV/PX W/IN NXT 24 HR/SOON APT;5-10 MIN MED DIS 11/29 DoD THERAPEUTIC PROCEDURE, 1 OR MORE AREAS, EACH 15 MINUTES; THERAPEUTIC EXERCISES TO DEVELOP STRENGTH AND ENDURANCE, RANGE OF MOTION AND FLEXIBILITY 10/03 [facility] NEUROPSYCHOLOGICAL TESTING (EG, [place] CARD SORTING TEST), ADMINISTERED BY A COMPUTER, WITH QUALIFIED HEALTH SUPERVISOR MATRIX INTERPRETATION AND REPORT 10/01 DoD TELE ASSESS & MGT SRV PROV QUAL NONPHYS HLTH CARE PRO TO EST PAT,PARENT,GUARD NOT ORIG REL ASSESS & MGT SRV PROV W/IN PREV 7 DAYS NOR LEAD ASSESS & MGT SRV/PX W/IN NXT 24 HR/SOON APT;5-10 MIN MED DIS 02/12 DoD Internet Med Svc Qual Non[facility] Healthcare Prof Estab Patient Internet Med Svc Qual [facility] Healthcare Prof Estab Patient [id number] 01/07 AUGUSTINA PETE [facility] Determination Of Refractive State Determination Of Refractive State [id number] 09/08 CARLOS BEGUM [facility] Diabetic indicator; retinal eye exam, dilated, bilateral 09/08 CARLOS BEGUM [facility] Ophthalmological New Patient Start Comprehensive Care Ophthalmological New Patient Start Comprehensive Care [id number] 09/08 CARLOS BEGUM [facility] Health And Behavior Intervention, Each 15 Minutes Individual Health And Behavior Intervention, Each 15 Minutes Individual [id number] 08/17 JOSSIE BERMEO [facility] Internet Med Svc Qual [facility] Prof Estab Patient Internet Med Svc Qual [facility] Prof Estab Patient [id number] 07/05 OUMOU DILLON [facility] Non-Physician Phone Call To Pt/Provider Intermed (11-20 min) Non-Physician Phone Call To Pt/Provider Intermed (11-20 min) [id number] 07/05 GREYSON DAVID [facility] Health And Behav A e mt Each 15 Min Initial A e ment Health And Behav Assessmt Each 15 Min Initial Assessment [id number] 06/30 JOSSIE BERMEO [facility] Non-Physician Phone Call To Patient/Provider Brief (5-10min) Non-Physician Phone Call To Patient/Provider Brief (5-10min) [id number] 06/09 HERB WEN [facility] Non-Physician Phone Call To Patient/Provider Brief (5-10min) Non-Physician Phone Call To Patient/Provider Brief (5-10min) [id number] 12/28 HERB WEN [facility] Non-Physician Phone Call To Patient/Provider Brief (5-10min) Non-Physician Phone Call To Patient/Provider Brief (5-10min) [id number] 12/10 HERB WEN [facility] Internet Med Svc Qual [facility] Prof Estab Patient Internet Med Svc Qual [facility] Prof Estab Patient [id number] 12/09 CLARK EASON [facility] Internet Med Svc Qual [facility] Prof Estab Patient Internet Med Svc Qual [facility] Prof Estab Patient [id number] 12/08 JACQUES KAN [facility] Mobilization Soft Ti ue Mobilization Soft Tissue 07371 09/08 CEDRIC MUÑOZ [facility] Physical Medicine Physical Therapy Re-Evaluation Physical Medicine Physical Therapy Re-Evaluation 51315 09/08 CEDRIC MUÑOZ Mobilization Soft Ti ue Mobilization Soft Tissue 86591 08/19 CEDRIC MUÑOZ Physical Medicine Physical Therapy Re-Evaluation Physical Medicine Physical Therapy Re-Evaluation 32700 08/19 CEDRIC MUÑOZ Mobilization Soft Ti ue Mobilization Soft Tissue 83333 08/06 CEDRIC MUÑOZ Physical Therapy: ___ Se ion Segments, 15 Minutes Each Physical Therapy: ___ Session Segments, 15 Minutes Each [id number] 08/06 CEDRIC MUÑOZ Mobilization Soft Ti ue Mobilization Soft Tissue 05149 07/27 CEDRIC MUÑOZ Physical Therapy: ___ Se ion Segments, 15 Minutes Each Physical Therapy: ___ Session Segments, 15 Minutes Each [id number] 07/27 CEDRIC MUÑOZ [facility] Non-Physician Phone Call To Patient/Provider Brief (5-10min) Non-Physician Phone Call To Patient/Provider Brief (5-10min) [id number] 01/08 ANGELA VILLASENOR [facility] Disease management program, follow-up/aleksey e ment 01/02 NEIL MONTEIRO [facility] Complete Permanent Excision Nail, Matrix Right First Toe Complete Permanent Excision Nail, Matrix Right First Toe [id number] 11/11 NAYELY RIVERA [facility] Non-Physician Phone Call To Patient/Provider Brief (5-10min) Non-Physician Phone Call To Patient/Provider Brief (5-10min) 83168 11/11 ROCKY MESA Non-Physician Phone Call To Patient/Provider Brief (5-10min) Non-Physician Phone Call To Patient/Provider Brief (5-10min) [id number] 08/28 ROCKY MESA Non-Physician Phone Call To Patient/Provider Brief (5-10min) Non-Physician Phone Call To Patient/Provider Brief (5-10min) [id number] 02/22 SIDRA HOUSTON Non-Physician Phone Call To Patient/Provider Brief (5-10min) Non-Physician Phone Call To Patient/Provider Brief (5-10min) 78028 11/29 SIDRA HOUSTON [facility] Physical Therapy: ___ Se ion Segments, 15 Minutes Each Physical Therapy: ___ Session Segments, 15 Minutes Each [id number] 10/03 ORACIO DAVENPORT Physical Medicine Physical Therapy Evaluation Physical Medicine Physical Therapy Evaluation 32769 10/03 ORACIO DAVENPORT [facility] Psychometric Neuropsych Testing Battery Admin By Computer Psychometric Neuropsych Testing Battery Admin By Computer [id number] 10/01 AGUSTO LEBRON [facility] Non-Physician Phone Call To Patient/Provider Brief (5-10min) Non-Physician Phone Call To Patient/Provider Brief (5-10min) [id number] 02/12 BRI LYONS [facility] Medical Nutrition Therapy Group (2 or More Individual(s)) Medical Nutrition Therapy Group (2 or More Individual(s)) 88167 11/28 VICENTE RUBALCAVA [facility] Alcohol and/or drug services, brief intervention, per 15 minutes 12/09 PABLO DOVE [facility] Alcohol and/or drug services, brief intervention, per 15 minutes 10/28 PABLO DOVE [facility] Psychiatric Evaluation Review of Records and Reports Psychiatric Evaluation Review of Records and Reports 72346 09/07 DIETER HENDRICKSON [facility] Physical Therapy: ___ Se ion Segments, 15 Minutes Each Physical Therapy: ___ Session Segments, 15 Minutes Each [id number] JESSICA ROE Osteopathic Manip Treatment (OMT) 1-2 Body Regions Involved Osteopathic Manip Treatment (OMT) 1-2 Body Regions Involved [id number] JESSICA ROE [facility] Physical Medicine Physical Therapy Re-Evaluation Physical Medicine Physical Therapy Re-Evaluation 99402 JESSICA ROE [facility] Non-Physician Phone Call To Pt/Provider Intermed (11-20 min) Non-Physician Phone Call To Pt/Provider Intermed (11-20 min) [id number] CARL GAMBOA [facility] Patient Counseling Medical Management Individual Patient Patient Counseling Medical Management Individual Patient [id number] PEYTON DAVIS [facility] Ophthalmological New Patient Start Comprehensive Care Ophthalmological New Patient Start Comprehensive Care 37363 ANNIE MONTGOMERY Diabetic indicator; retinal eye exam, dilated, bilateral ANNIE MONTGOMERY Determination Of Refractive State Determination Of Refractive State 23892 ANNIE MONTGOMERY Spectacles Services Fitting Monofocals (Not For Aphakia) Spectacles Services Fitting Monofocals (Not For Aphakia) 61374 ANNIE MONTGOMERY Waiver services; not otherwise specified (NOS) AUGUSTINA PETE [facility] Psychometric Neuropsych Testing Battery Admin By Computer Psychometric Neuropsych Testing Battery Admin By Computer [id number] ASHLEY PARKER [facility] Brief communication technology-based service, e.g. virtual check-in, by a physician or other qualified health care ganesh noland who can report evaluation and management services, provided to an established patient, not originating from a related E/M service provided within the previous 7 days nor leading to an E/M service or procedure within the next 24 hours or soonest available appointment; 5-10 minutes of medical discu ion AUGUSTINA PETE [facility] Telephone calls by a registered nurse to a disease management program member for monitoring purposes; per month ALBERTINA SNYDER [facility] Diabetic management program, nurse visit ALBERTINA SNYDER [facility] Scanning Computerized Ophthalmic Diagnostic Imaging Retina Scanning Computerized Ophthalmic Diagnostic Imaging Retina [id number] ANNIE MONTGOMERY <SEE HAIMS> [facility] Non-Physician Phone Call To Patient/Provider Brief (5-10min) Non-Physician Phone Call To Patient/Provider Brief (5-10min) 40500 BRENNON MEJIA [facility] Modalities Heat Hot Packs Modalities Heat Hot Packs 60591 ALAYNA MOORE [facility] Modalities Traction Modalities Traction 58494 NONI FELDER [facility] Threshold Audiogram (Pure Tone) Automated Threshold Audiogram (Pure Tone) Automated 0208T DIONNA PITTS [facility] Ear mold/insert, disposable, any type DIONNA PITTS Patient education, not otherwise cla ified, non-physician provider, individual, per se ion DIONNA PITTS Comprehensive Audiometry Comprehensive Audiometry 93393 MIKE KING Tympanometry Compliance Tympanometry Compliance 30721 MIKE KING Health And Behavior Intervention, Each 15 Minutes Individual Health And Behavior Intervention, Each 15 Minutes Individual 52545 MIKE KING Hearing Aid Examination and Selection Hearing Aid Examination and Selection 19933 MIKE KING Disease management program; initial a e ment and initiation of the program [place] Care Facilitation Introduction and Intake Shruthi Hearing aid, digitally programmable, binaural, BTE MIKE KING Fitting/orientation/c hecking of hearing aid MIKE IKNG Dispensing fee, unspecified hearing aid MIKE KING Med Management By Pharmacist Initial 15 Min New Patient Med Management By Pharmacist Initial 15 Min New Patient 65554 ELIDA DAVIS Medication Management By Pharmacist Each Additional 15 Min Medication Management By Pharmacist Each Additional 15 Min 55070 ELIDA DAVIS Total appointment time: 60 minutes Time on MTM = 49 minutes Time on Tobacco = 11 minutes Time on Prolonged services = 45 minutes. Time spent on the following tasks: reviewing previous encounters, discussing case with team, making medication list etc. [facility] Telephone calls by a registered nurse to a disease management program member for monitoring purposes; per month [place] 4 Week Care Facilitation Follow-up DoD Med Management By Pharmacist Initial 15 Min Estab Patient Med Management By Pharmacist Initial 15 Min Estab Patient [id number] ELIDA DAVIS Total appointment time: 30 minutes Time on MTM = 15 minutes Time on Tobacco = 15 minutes DoD Non-Physician Phone Call To Pt/Provider Lengthy (21-30 min) Non-Physician Phone Call To Pt/Provider Lengthy (21-30 min) [id number] ALBERTINA SNYDER G [facility] Telephone calls by a registered nurse to a disease management program member for monitoring purposes; per month [place] 8 Week Care Facilitation Follow-up DoD Medication Management By Pharmacist Each Additional 15 Min Medication Management By Pharmacist Each Additional 15 Min ELIDA GARZA Total appointment time: 3 minutes Time on MTM = 27 minutes Time on Tobacco = 3 minutes DoD Med Management By Pharmacist Initial 15 Min Estab Patient Med Management By Pharmacist Initial 15 Min Estab Patient 31515 ELIDA DAVIS DoD Medication Management By Pharmacist Each Additional 15 Min Medication Management By Pharmacist Each Additional 15 Min ELIDA GARZA Total appointment time: 30 minutes Time on MTM = 30 minutes DoD Medication Management By Pharmacist Each Additional 15 Min Medication Management By Pharmacist Each Additional 15 Min ELIDA GARZA Total appointment time: 30 minutes Time on MTM = 27 minutes Time on Tobacco = 3 minutes DoD Medication Management By Pharmacist Each Additional 15 Min Medication Management By Pharmacist Each Additional 15 Min ELIDA GARZA Total appointment time: 30 minutes Time on MTM = 27 minutes Time on Questionnaire = 3 minutes DoD Social History Combined list of available smoking, tobacco, and other social history from [facility] facilities. Social History Type Response Date Comment [facility] e Sex Representation Male (finding) 03/31/2017 Un known Organization Sexual Orientation [facility]acy Gender identity [facility] Pharm[facility] This section is an empty social history section. DoD Assessment and Plan Combined list of future care activities from [facility] and [facility] facilities (e.g., assessment and plan notes, appointments, orders, and referrals). Additional future care activities may be listed in the Plan of Care section. Result Assessment and Plan Date Source Assessment and Plan No data available for this section 11/28/2024 Ambulatory Pharmacy Functional Status Combined list of recent functional and cognitive assessments recorded at [facility] Functional [place] Measurement (FIM) Scale: 1 = Total Assistance (Subject = 0% +), 2 = Maximal Assistance (Subject = 25% +), 3 = Moderate Assistance (Subject = 50% +), 4 = Minimal Assistance (Subject = 75% +), 5 = Supervision, 6 = Modified [place] (Device), 7 = Complete [place] (Timely, Safely). Assessment Date/Time Source Assessment Type Assessment Skill Assessment Score Assessment Details No data available for this section
--- NOTE | 2024-11-28 00:01 | ED.SKABFB ---
HPI - Skin/Abscess/Foreign Bdy General Chief complaint: Skin/Abscess/Foreign Body Stated complaint: Fish hook to left hand Time Seen by Provider: 11/27/24 22:35 History of Present Illness HPI narrative: 44-year-old male presents to the emergency department for fishhook stuck in the palm of his left hand that occurred prior to arrival. Patient states he was out fishing today upon when a dirty fishhook got caught in his pants, when he attempted to the removed from his pain and he accidentally stuck himself in the hand. States he attempted to remove it himself without success. Reports he is up-to-date on tetanus. Related Data Allergies Allergy/AdvReac Type Severity Reaction Status Date / Time No Known Allergies Allergy Verified 11/27/24 22:24 Review of Systems Review of Systems: All systems reviewed & are unremarkable except as noted in HPI and below Exam Narrative: GENERAL: Well-appearing, well-nourished, and in no acute distress. HEAD: Normocephalic, atraumatic. EYES: EOMI. ENT: Nares clear, no rhinorrhea or epistaxis. Mucous membranes moist. NECK: Supple. CHEST: Clear to auscultation. No respiratory distress. HEART: Regular rate and rhythm. No murmur heard. Normal peripheral pulses. EXTREMITIES: Normal range of motion. No edema. SKIN: [place] stuck in the palm of the left hand near the thenar eminence. No surrounding erythema, induration, fluctuation or warmth. Full range of motion of all digits. Cap refill less than 2 throughout. NEURO: No focal deficits. Alert and oriented x3 Course Vital Signs Vital signs: Vital Signs Temperature 98.3 F 11/27/24 21:37 Pulse Rate 83 11/27/24 21:37 Respiratory Rate 16 11/27/24 21:37 Blood Pressure 139/82 11/27/24 21:37 Pulse Oximetry 97 11/27/24 21:37 Oxygen Delivery Room Air 11/27/24 21:37 Temperature 98.3 F 11/27/24 21:37 Pulse Rate 83 11/27/24 21:37 Respiratory Rate 16 11/27/24 21:37 Blood Pressure 139/82 11/27/24 21:37 Pulse Oximetry 97 11/27/24 21:37 Oxygen Delivery Room Air 11/27/24 21:37 Procedures Foreign Body Removal Foreign Body #1: Foreign Body Removal Date: 11/28/24 Foreign Body Removal Time: 00:04 Time Out Performed: yes Site: left Description of foreign body: fish hook Technique: manual removal and removal with forceps Confirmed by:: direct visualization Complications: none Post-procedure exam: awake, alert Neurovascular: normal capillary fill, distal motor function normal, no signs of compartment syndrome and no change from pre-procedure MDM - Skin/Abscess/Foreign Bdy MDM Narrative Medical decision making narrative: 44-year-old male presents emergency department for fishhook in the palm of his left hand that occurred prior to arrival. Vitals are stable. Tdap reportedly up-to-date. X-ray confirms a fish in the soft tissue with no bony involvement. Local anesthetic applied and the fishhook removed with advancement of the fishhook through the soft tissue. The fishhook was entirely intact on removal. Patient remained neurovascularly intact post removal. The area was irrigated extensively with normal saline and wound glass mould cleaner. Antibiotic ointment and bandage applied. The patient was started on cephalexin and Levaquin to cover staph, strep and common fresh water bacteria. The patient was advised follow-up with his PCP was given return precautions. He is agreeable with the plan verbalized understanding. Discharged in stable condition. Discharge Plan Discharge Clinical Impression: Fish hook in hand Patient Disposition: Home Condition: Stable Instructions: Antibiotic Form, Soft Tissue Foreign Body (ED) Additional Instructions: You were evaluated in the emergency department for a fishhook removal. We were able to successfully remove the fishhook. Please take the antibiotics as directed. Keep the hand clean and dry. Follow-up with your primary care provider. Return to the emergency department if you develop surrounding redness, drainage, fever or other concerning symptoms. Patient Language: [place] Prescriptions: New levofloxacin 750 mg tablet 750 mg PO DAILY Qty: 7 0RF cephalexin 500 mg capsule 500 mg PO Q6H Qty: 28 0RF Follow-up/Referrals: Steve,Mohan Daly Jr., MD [Primary Care Provider] -
[2024-11-28] MEDS: levoFLOXacin 750 MG TABLET PO (00:09)
[2024-11-28] MEDS: CEPHALEXIN 500 MG CAPSULE PO (00:12)
== END 2024-11-28 00:14 | disposition home or self-care (01) ==
PROVIDERS: Emergency Provider Physician Assistant; PCP Hospitalist
DX: S61.442A Puncture wound with foreign body of left hand, initial encounter (principal); W45.8XXA Other foreign body or object entering through skin, initial encounter
CPT/HCPCS: 73130; 99283; A9270